=== PATIENT | female | born 1985 ===

== ENCOUNTER → 2019-12-19 14:26 | Outpatient (REF) | payer OTHER, SELFPAY ==
--- NOTE | 2019-12-19 14:00 | ECG_ITS ---
Hook-up date: 2019-12-19 14:46:00 Duration: 24:41:00 Test Indications: VERTIGO Medications: [id number] QRS complexes * Ventricular ectopics which represent % of total QRS comp. 8 Supraventricular ectopics which represent <1 % of total QRS comp. * Paced QRS complexs which represent % of total QRS comp. VENTRICULAR ECTOPY * Isolated * Bigeminal Cycles * Couplets * Runs * Beats in Runs * Beats LONGEST at * BPM at :: -- * Beats FASTEST at * BPM at :: -- SUPRAVENTRICULAR ECTOPY 3 Isolated 0 Couplets 1 Runs 5 Beats in Runs 5 Beats LONGEST at 98 BPM at 04:45:46 2019-12-20 5 Beats FASTEST at 98 BPM at 04:45:46 2019-12-20 HEART RATES 52 MIN at 06:01:39 2019-12-20 77 AVG 155 MAX at 13:50:43 2019-12-20 LONGEST RR 1.2560 secs at 06:42:00 2019-12-20 S-T LEVELS Channel 1 - 128 mm at 14:46:00 2019-12-19 - 128 mm at 14:46:00 2019-12-19 Channel 2 - 128 mm at 14:46:00 2019-12-19 - 128 mm at 14:46:00 2019-12-19 Channel 3 - 128 mm at 03:40:51 -- - 128 mm at 03:40:51 Underlying rhythm is sinus; Average ventricular rate 77/min; range 52-155/min; About 10% of rates >100/min and 4% <60/min; Very rare supraventricular ectopy; No dangerous dysrhythm periods ; Symptoms in patient diary including chest tightness, lightheaded, heart pounding, falling, feel like dying, short of breath, correlating with sinus rhythm. Referred By: Rory Martinez Overread By: MIKEY OTT
== END ==
LOC: HO.CARD 14:26
PROVIDERS: PCP Nurse Practitioner Family; Visit Provider Nurse Practitioner Family
DX: R42 Dizziness and giddiness (principal)
CPT/HCPCS: 93225; 93226

== ENCOUNTER 2019-12-22 04:25 | Emergency (ER) | payer OTHER, SELFPAY ==
--- NOTE | 2019-12-22 04:29 | ECG_ITS ---
Test Reason : CHEST TIGHTNESS Blood Pressure : / mmHG Vent. Rate : 077 BPM Atrial Rate : 077 BPM P-R Int : 176 ms QRS Dur : 090 ms QT Int : 396 ms P-R-T Axes : 046 026 012 degrees QTc Int : 448 ms Normal sinus rhythm with sinus arrhythmia Normal ECG When compared with ECG of 25-NOV-2019 03:54, No significant change was found Referred By: Berkley Harley Electronically Signed By:AMARILIS CARLSON MD
[2019-12-22 04:36] VITALS: BP 140/84; PULSE 74; RESP 16; TEMP 36.7; O2SAT 100; BMI 25.1
[2019-12-22 06:53] VITALS: BP 127/64; PULSE 74; RESP 16; O2SAT 98
--- NOTE | 2019-12-22 06:53 | ED.CHESTPAIN ---
HPI - Chest Pain General Chief Complaint: Chest Pain Stated Complaint: chest discomfort Time Seen by Provider: 12/22/19 06:53 History of Present Illness HPI narrative: Delayed entry secondary to complications with remote log in. This is a pleasant 34-year-old female who presents with persistent body sensations that she has been experiencing for over 4 weeks. She was evaluated here in the emergency department in November for the symptoms and at that time was found to have a negative workup. In addition, patient has undergone a Holter monitor for further evaluation of her cardiac symptoms which include palpitations/ heart racing. Patient describes feeling a sensation of falling when attempting to sleep and then feeling as though she needs to concentrate very hard or she feels like she may pass out. It is at this time that she feels sensation of chest tightness. These episodes have not been associated with fevers, chills, recent travel, unilateral calf swelling or pain, and she has been COVID-19 tested and found to be negative. She endorses that sometimes the symptoms can occur during the day, however there does not seem to be identifiable triggers. She states she is having significant difficulty in gaining access to her primary care provider and consistent follow-up for other tests. At this time she does not feel that this is consistent with anxiety. Related Data Previous Rx's Medication Instructions Recorded hydroxyzine HCl 25 mg PO BEDTIME PRN #3 tab 12/22/19 buspirone 10 mg tablet 10 mg PO BID 14 Days #28 tab 12/28/19 Allergies Allergy/AdvReac Type Severity Reaction Status Date / Time azithromycin [From ZITHROMAX] Allergy Unknown UNKNOWN Verified 12/27/19 12:54 concord grape Allergy Unknown hives Uncoded 12/27/19 12:54 CONCORD GRAPES Allergy Unknown ITCHY Uncoded 12/27/19 12:54 THROAT Review of Systems Review of Systems: Pertinent positives and negatives as stated in HPI 10 point review systems is otherwise negative. [facility] Past Medical History Source: nursing notes reviewed Social History Social History Alcohol intake: current Smoking Status: Never smoker Physical Exam Vital Signs and I&O and Narrative: Vital Signs and I&O: Vital Signs Temp 98.0 F 12/22/19 04:36 Pulse 74 12/22/19 06:53 Resp 16 12/22/19 06:53 BP 127/64 10/09/20 06:53 Pulse Ox 98 12/22/19 06:53 Body Mass Index 25.1 VITAL SIGNS: Reviewed. GENERAL: Well developed, well nourished, in no acute distress. HEAD: Normocephalic/atraumatic, EYES: PERRLA, EOMI intact without pain, no nystagmus/pallor/icterus noted EARS: Ext canals without abnormality, TMs non-bulging and non-erythematous NOSE: Nares patent bilateral OROPHARYNX: no oral lesions noted, posterior pharynx clear and non-erythematous without noted tonsillar enlargement/erythema/exudates NECK: Supple, no adenopathy LUNGS: Normal breath sounds. No adventitious sounds or accessory muscle use. SpO2<98%> CARDIOVASCULAR: Regular rate and rhythm without noted murmurs, no JVD or lower extremity edema. ABDOMEN: Soft, non-tender, non-distended with bowel sounds. No rigidity. No guarding. No palpable masses or hernias noted MUSCULOSKELETAL: No tenderness, deformities, or effusions noted on gross inspection. EXTREMITIES: No cyanosis, clubbing or edema. SKIN: Inspection of the skin reveals no rashes, ulcerations, jaundice, pallor, or petechiae. NEUROLOGIC: Alert and oriented x 4. Strength and sensation to light touch were grossly intact x 4. Course Course Course Narrative: This is a 34-year-old female with history and clinical presentation most consistent with anxiety like reaction and on review of all lab work there is no evidence of infection, thyroid dysfunction, or abnormal EKG findings. Proceeded to have a shared decision making discussion with the patient regarding repeating laboratory tests, access to follow up appointments, and attempting a trial of medication for anxiety. In addition, offered the option of assistance from case management. Patient agrees that repeat lab work will be unlikely to uncover an unidentified problem given current asymptomatic status. She did agree to trial an anti-anxiety medication prior to bedtime and would like the help of case management in gaining follow-up access. Patient was discharged in stable condition. MDM - Chest Pain ECG Data ECG #1: Attestation: I personally reviewed and interpreted this ECG as follows: Prior ECG tracings: available for review (11/25/2019) Interpretation: NSR, HR-77, no evidence of ischemia Discharge Plan Discharge Clinical Impression: Anxiety Patient Disposition: Home, Self-Care Instructions: Anxiety (ED) Additional Instructions: The patient and/or family acknowledge understanding of results (as applicable), diagnosis, treatment plan, need for follow up, and symptoms that should prompt a return to the emergency room. Prescriptions: New hydroxyzine HCl 25 mg tablet 25 mg PO BEDTIME PRN (Reason: anxiety) Qty: 3 RF: 0 No Action buspirone 10 mg tablet 10 mg PO BID 14 Days Qty: 28 RF: 0 Referrals: Rory Martinez FNP-BC [Primary Care Provider] - 2 days ( for possible anxiety symptoms) Interventions: ED Discharge Assessment Last Done: 12/22/19 07:30 Discharge Date/Time: 12/22/19 07:31
== END 2019-12-22 07:31 | disposition home or self-care (01) ==
PROVIDERS: Emergency Provider Student in an Organized Health Care Education/Training Program; PCP Nurse Practitioner Family
DX: F43.0 Acute stress reaction (principal); F41.1 Generalized anxiety disorder
CPT/HCPCS: 93005; 99283

== ENCOUNTER 2020-01-02 14:00 | Outpatient (REF) | payer OTHER, SELFPAY ==
[2020-01-02 17:21] LABS: Baso%MD 0.6 %; Eos%MD 0.7 %; Hematocrit 36.7 % (37-47); Hemoglobin 12.1 g/dl (12.0-16.0); IG%MD 0.1 %; Mean Platelet Volume 10.9 fL (9.4-12.3); Mono%MD 5.6 %; Platelet Count 230 X10*3/uL (160-400); Red Blood Count 4.17 X10*6/uL (4.20-5.50); Red Cell Distribution Width 11.9 % (11.0-16.0)
[2020-01-02 17:36] LABS: Anion Gap 15 (12-20); Blood Urea Nitrogen 11 mg/dL (9-16); Calcium 9.8 mg/dL (8.4-10.2); Carbon Dioxide 28 mmol/L (22-29); Chloride 102 mmol/L (96-108); Estimated Glomerular Filt Rate > 60; Glucose Random 83 mg/dL (60-115); Iron 129 mcg/dL (30-160); Percent Iron Saturation 34 % (15-50); Potassium 4.6 mmol/l (3.3-5.1); Sodium 140 mmol/L (135-145); Total Iron Binding Capacity 378 mcg/dL (228-428); Unsaturated Iron Binding 249 ug/dL
[2020-01-02 17:58] LABS: Ferritin 79 ng/mL (10-122)
[2020-01-02 18:00] LABS: Basophils Abs Manual 0.1 X10*3/uL (0.0-0.3); Basophils Percent Manual 1 % (0-1); Eosinophils Absolute Manual 0.1 X10*3/UL (0.0-0.8); Eosinophils Percent Manual 1 % (0-4); Lymphocytes Absolute Manual 2.3 X10*3/uL (0.6-4.8); Lymphocytes Percent Manual 33 % (20-40); Monocytes Absolute Manual 0.4 X10*3/uL (0.0-1.2); Monocytes Percent Manual 5 % (2-11); Neutrophils Percent Manual 60 % (45-73)
[2020-01-02 18:01] LABS: Band Neutrophils Percent 0 % (3-5); Neutrophils Absolute Manual 4.2 X10*3/uL (2.2-7.9); Platelet Estimate NORMAL (NORMAL); Platelet Morphology Comment NORMAL; RBC Morphology NORMAL
[2020-01-02 18:02] LABS: Vitamin B12 330 pg/mL (200-900)
[2020-01-06 05:17] LABS: Transferrin 303 mg/dL (188-341)
== END 2020-01-02 14:01 | disposition home or self-care (01) ==
LOC: HO.HMGCLDS 14:00
PROVIDERS: PCP Nurse Practitioner Family; Visit Provider Nurse Practitioner Family
DX: D64.9 Anemia, unspecified (principal); R42 Dizziness and giddiness; F41.9 Anxiety disorder, unspecified
CPT/HCPCS: 36415; 80048; 82607; 82728; 83540; 84466; 85007; 85027

== ENCOUNTER 2020-01-05 14:25 | Outpatient (REF) | payer OTHER, SELFPAY ==
[2020-01-05 17:23] LABS: COVID-19 Test Negative (Negative)
== END 2020-01-05 14:26 | disposition home or self-care (01) ==
LOC: HO.LAB 14:25
PROVIDERS: PCP Nurse Practitioner Family; Visit Provider Internal Medicine
DX: Z20.828 Contact with and (suspected) exposure to other viral communicable diseases (principal)
CPT/HCPCS: 87635

== ENCOUNTER 2020-01-09 14:32 | Outpatient (REF) | payer OTHER, SELFPAY | END 2020-01-09 14:33 | disposition home or self-care (01) | LOC: HO.LAB 14:32 | PROVIDERS: PCP Nurse Practitioner Family; Visit Provider Internal Medicine | DX: Z20.828 Contact with and (suspected) exposure to other viral communicable diseases (principal) | CPT/HCPCS: 87635 ==

== ENCOUNTER 2020-01-12 13:00 | Outpatient (RCR) | payer OTHER, SELFPAY ==
--- NOTE | 2020-01-12 14:04 | MHC.PT.DC ---
[facility] [place] Office [place] Office [place] Office [address] Donna Palmer [address] [phone] F: [phone] F: [phone] F: [phone] F: [phone] Physical Therapy Discharge Report Diagnosis: Dorsalgia Date of Surgery: NA Date of Evaluation: 10/18/19 Date of Discharge: 01/12/20 Treatments to Date: 21 Cancellations to Date: 1 No Shows to Date: 0 Discharge Status: Achieved Goals Improved Function Independent with HEP Discharge Summary: Patient is ready for DC. Came for 21 visits and we addressed multiple different symptoms and in general she is feeling better. She demos good I in HEP, demos improvements in strength and ROM as well as function. She has no pain during tx sessions. Would benefit from continued HEP for strengthening to maintain results. Electronically signed by: Nancy Ruiz PT Please sign and return to therapist. Thank you for your referral.
== END 2021-01-10 11:22 | disposition home or self-care (01) ==
LOC: HO.PTCHIC 13:00
PROVIDERS: PCP Nurse Practitioner Family; Visit Provider Nurse Practitioner Family
DX: M54.9 Dorsalgia, unspecified (principal)
CPT/HCPCS: 97110; 97140; 97530

== ENCOUNTER → 2020-01-24 13:05 | Outpatient (BNVA) | payer OTHER, SELFPAY | PROVIDERS: PCP Nurse Practitioner Family; Visit Provider Internal Medicine Cardiovascular Disease | DX: R00.2 Palpitations (principal); R42 Dizziness and giddiness; D64.9 Anemia, unspecified; F41.9 Anxiety disorder, unspecified | CPT/HCPCS: 93005 ==

== ENCOUNTER → 2020-02-27 09:22 | Outpatient (REF) | payer OTHER, SELFPAY ==
--- NOTE | 2020-02-27 09:27 | CA_ITS ---
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 The visually estimated ejection fraction is between 55-60%. - No obvious valvular pathology seen on this study. Findings Procedure Information Contrast agent, definity, is being given per protocol without apparent complications. Left Ventricle Normal left ventricular cavity size. There is normal left ventricular wall thickness. The left ventricular systolic function is normal. The visually estimated ejection fraction is between 55-60%. There is no evidence of regional wall motion abnormalities. Diastolic function is normal for age. Right Ventricle Normal right ventricular cavity size and systolic function. Atria Both atria are normal in size. Aortic Valve There is a normal trileaflet aortic valve. There is no aortic valve stenosis. There is no aortic valve regurgitation. Mitral Valve The mitral valve appears normal. There is trace mitral valve regurgitation. There is no mitral valve stenosis. Pulmonic Valve The pulmonic valve was not well visualized. Tricuspid Valve Normal tricuspid valve structure. There is trace tricuspid valve regurgitation. The pulmonary artery systolic pressure is normal. Great Vessels The aortic annulus, sinuses of valsalva, and asc aorta are normal in size. Venous The inferior vena cava is normal in size and collapses greater than 50% with inspiration. Pericardium/Pleural There is no evidence of pericardial effusion. Prior Study Comparison No significant change compared to prior study dated: 02/05/2018. Recommendations, Care & Conclusions No obvious valvular pathology seen on this study. Measurements M-Mode Liner Measurements Normals - Women/Men LVIDd: 5.00 3.9-5.3/4.2-5.9 cm LVIDd Index: 2.56 1.9-3.2 cm/m2 LVIDs: 3.14 2.0-3.8 cm M-Mode Volumes LV EDV: 118.00 LV ESV: 39.10 2D Linear Measurements IVSd: 0.63 0.6-0.9/0.6-1.0 cm LVIDd: 4.97 3.9-5.3/4.2-5.9 cm LVIDd Index: 2.55 2.4-3.2/2.2-3.1 cm/m2 LVIDs: 3.61 2.0-3.6 cm LVPWd: 0.92 0.7-1.1 cm Ao Root: 2.10 2.1-3.5 cm LA Diam: 2.80 2.7-3.8/3.0-4.0 cm LAIDs Index: 1.44 1.5-2.3 cm/m2 LV Mass: 160.32 67-162/88-224 g LV Mass Index: 82.21 43-95/49-115 g/m2 LVOT Diam: 2.00 3.0+(-)1.3 cm M-Mode Systolic Function FS: 37.20 27-47/25-43% LVEF: 66.90 >55% Mitral Valve MV Pk E: 1.04 MV PK A: 0.42 MV Decel Time: 206.00 E/A: 2.50 E'Lateral: 17.50 E'Medial: 12.60 E/E' Med: 8.30 E/E' Lat: 5.90 PHT: 60.00 MVA PHT: 3.67 Decel Benzie: 5.06 Aortic Valve AoV Pk Fuad: 1.29 AoV Pk Grad: 7.00 LVOT LVOT Pk Fuad: 0.90 LVOT Mn Fuad: 0.62 LVOT VTI: 0.21 LVOT Pk Grad: 3.00 LVOT Mn Grad: 2.00 LVOT Diam: 2.00 LVOT Area: 3.14 Diastolic Function MV Pk E: 1.04 MV Pk A: 0.42 E/A: 2.50 E'Medial: 12.60 E/E' Med: 8.30 E' Laterial: 17.50 E/E' Lat: 5.90 Tricuspid Valve TR Pk Fuad: 1.97 TR Pk Grad: 16.00 RA Press: 3.00 RVSP: 19.00 Great Vessels Aorta Ao Root-2D: 2.10 2.0-3.7 cm Ao Asc: 2.50 2.1-3.4 cm Updated in Other Vendor System with Status of Final José Miguel Nicole MD electronically signed on 02/27/2020 4:57:20 PM with status of Final
== END ==
LOC: HO.CARD 09:22
PROVIDERS: Visit Provider Internal Medicine Cardiovascular Disease
DX: R00.2 Palpitations (principal)
CPT/HCPCS: 93306; Q9957

== ENCOUNTER → 2020-05-01 13:56 | Outpatient (BNVA) | payer OTHER, SELFPAY | PROVIDERS: PCP Nurse Practitioner Family; Visit Provider Internal Medicine Cardiovascular Disease ==

== ENCOUNTER 2020-09-30 09:50 | Outpatient (REF) | payer OTHER, SELFPAY ==
[2020-09-30 16:08] LABS: CT PCR NOT DETECTED (Not Detect.); NG PCR NOT DETECTED (Not Detect.)
== END 2020-09-30 09:51 | disposition home or self-care (01) ==
LOC: HO.LAB 09:50
PROVIDERS: Visit Provider Advanced Practice Midwife
DX: Z01.419 Encounter for gynecological examination (general) (routine) without abnormal findings (principal); R82.79 Other abnormal findings on microbiological examination of urine; Z23 Encounter for immunization; Z79.899 Other long term (current) drug therapy
CPT/HCPCS: 81003; 87491; 87591; 90471

== ENCOUNTER → 2020-10-17 12:32 | Outpatient (BNVA) | payer OTHER, SELFPAY | PROVIDERS: PCP Nurse Practitioner Family; Referring Provider Nurse Practitioner Family; Visit Provider Internal Medicine Cardiovascular Disease | DX: R42 Dizziness and giddiness (principal) | CPT/HCPCS: 93005 ==

== ENCOUNTER → 2020-11-22 13:06 | Outpatient (BNVA) | payer OTHER, SELFPAY | PROVIDERS: PCP Nurse Practitioner Family; Visit Provider Advanced Practice Midwife | DX: Z23 Encounter for immunization (principal) | CPT/HCPCS: 90471 ==

== ENCOUNTER 2021-01-16 08:00 | Outpatient (RCR) | payer OTHER, SELFPAY ==
--- NOTE | 2020-10-15 08:52 | MHC.PT.EP ---
[place] Office [place] Office [place] Office [address] Donna Palmer [address] [phone] F: [phone] F: [phone] F: [phone] F: [phone] Physical Therapy Plan of Care Date of Evaluation: Date of Surgery: n/a Diagnosis: back and shoulder pain Assessment: Patient is a 34 year old R handed female who presents with s/s consistent with back and shoulder pain. The onset is not related to trauma. She does have a history of scoliosis and notes the pain is mostly related to sitting for longer periods of time. She works with daily job demands including sitting 6-8 hours/day. Patient past medical history also includes asthma. Current impairments include pain, posture, flexibility, strength, activity tolerance and functional mobility. Functional limitations include decreased ability to sit, work, and travel via car, train or plane. Patient is motivated with good rehab potential. Skilled PT will address impairments and functional limitations in order to achieve goals. Frequency and Duration: The patient will be seen 2x/week for 5 weeks Short Term Goals: I with HEP - 2 weeks Able to sit > 1 hour before increased pain - 3 weeks Work/leisure modifications to posture - 3 weeks Custodial Goals: Able to fly with 3/10 max pain to/from [place] - 5 weeks Able to sit > 2 hours with 1/10 pain - 5 weeks Treatment Plan: Modalities to reduce pain, spasms and effusion. Manual therapy to restore motion and function. Therapeutic exercise to improve strength and flexibility. Neuromuscular re-education for posture and balance. Therapeutic activities to return to functional activities of daily living. Electronically signed by: Michael Salazar, PT Please sign and return to therapist. Thank you for your referral.
--- NOTE | 2021-02-19 13:44 | MHC.PT.DC ---
[facility] [place] Office [place] Office [place] Office [address] Donna Palmer [address] [phone] F: [phone] F: [phone] F: [phone] F: [phone] Physical Therapy Discharge Report Diagnosis: back and shoulder pain Date of Surgery: n/a Date of Evaluation: 10/15/20 Date of Discharge: 01/16/21 Treatments to Date: 16 Cancellations to Date: 0 No Shows to Date: 0 Discharge Status: Independent with HEP Discharge Summary: 01/16/21: HEP was reviewed. Pt progress documented in objective measures. We discussed plan at length and in agreement to transition to HEP at this time as patient is confident in ability to manage s/s independently. 01/14/21: pt is somewhat uneasy d/c'ing to HEP but ready. encouraged her on importance of trying to manage s/s independently. we reviewed HEP and will issue updated HEP NV. 01/10: Patient tolerated incline on treadmill well. Demos good understanding of postural corrections and TAC. Educated on remaining 2 visits. Pt with good carryover with TAC training. tends to tolerated decline amb better (extension encouraged). educated on postures and positions, symptom management. Electronically signed by: Michael Salazar, PT Please sign and return to therapist. Thank you for your referral.
== END 2021-02-19 13:45 | disposition home or self-care (01) ==
LOC: HO.PTCHIC 08:00
PROVIDERS: PCP Nurse Practitioner Family; Visit Provider Nurse Practitioner Family
DX: R52 Pain, unspecified (principal)
CPT/HCPCS: 97110; 97112; 97140; 97161; 97530

== ENCOUNTER 2021-03-17 10:36 | Outpatient (REF) | payer OTHER, SELFPAY ==
[2021-03-17 13:59] LABS: Appearance Urine CLEAR; Color Urine YELLOW; Glucose Urine UA NEG (NEG); Leukocyte Esterase Urine NEG (NEG); Nitrite Urine NEG (NEG); UACC Culture Trigger NO; Urine Blood 1+ (NEG); Urine Ketones NEG (NEG); Urine Protein NEG (NEG-TRACE)
[2021-03-17 14:16] LABS: Squamous Epithelial Cell Urine TRACE /LPF; WBC Urine 0 /HPF (0-4)
[2021-03-17 14:26] LABS: Alanine Aminotransferase 16 U/L (0-31); Albumin Level 4.3 g/dL (3.5-5.0); Alkaline Phosphatase 56 U/L (39-117); Anion Gap 10 (12-20); Aspartate Amino Transferase 12 U/L (5-31); Bilirubin Total 1.4 mg/dL (0.0-1.0); Blood Urea Nitrogen 12 mg/dL (9-16); Calcium 9.6 mg/dL (8.4-10.2); Carbon Dioxide 30 mmol/L (22-29); Chloride 107 mmol/L (96-108); Cholesterol 177 mg/dL; Estimated Glomerular Filt Rate > 60; Glucose Fasting 77 mg/dL (60-99); HDL Cholesterol 65 mg/dL; LDL Cholesterol Calculated 102 mg/dl; Sodium 142 mmol/L (135-145); Total Protein 7.3 g/dL (6.5-8.0); Triglycerides 51 mg/dL
[2021-03-17 14:49] LABS: TSH reflex Free T4 1.07 uIU/mL (0.32-4.0)
== END 2021-03-17 10:37 | disposition home or self-care (01) ==
LOC: HO.HMGCLDS 10:36
PROVIDERS: PCP Nurse Practitioner Family; Visit Provider Nurse Practitioner Family
DX: Z00.00 Encounter for general adult medical examination without abnormal findings (principal)
CPT/HCPCS: 36415; 80053; 80061; 81001; 84443

== ENCOUNTER 2021-10-27 11:00 | Outpatient (RCR) | payer BC, OTHER, SELFPAY ==
--- NOTE | 2021-08-29 14:59 | MHC.PT.EP ---
[facility] [place] Office [place] Office [place] Office [address] [phone] F: [phone] F: [phone] F: [phone] F: [phone] Physical Therapy Plan of Care Date of Evaluation: Date of Surgery: n/a Diagnosis: Lumbar Stenosis, Nerve Root Compression Assessment: Patient is a 35 year old R handed female who presents with s/s consistent with lumbar stenosis and nerve root compression. 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 Patient past medical history includes heart murmur, depression, anemia and asthma. Current impairments include pain, posture, ROM, strength, activity tolerance and functional mobility. Functional limitations include decreased ability to walk, bend, drive, sit, lift and sleep. Patient is motivated with good rehab potential. Skilled PT will address impairments and functional limitations in order to achieve goals. Frequency and Duration: The patient will be seen 2x/week for 4 weeks Short Term Goals: I with HEP - 2 weeks s/s centralized - 2 weeks proper body mechanics for transfers, lifting, sit <> stand - 2 weeks Correction Goals: hip strength 4/5 grossly - 4 weeks HS flex WNL - 4 weeks Oswestry 10% or better - 4 weeks Treatment Plan: Modalities to reduce pain, spasms and effusion. Manual therapy to restore motion and function. Therapeutic exercise to improve strength and flexibility. Neuromuscular re-education for posture and balance. Therapeutic activities to return to functional activities of daily living. Electronically signed by: Michael Salazar, PT Please sign and return to therapist. Thank you for your referral.
--- NOTE | 2021-12-04 11:23 | MHC.PT.DC ---
[facility] [place] Office [place] Office [place] Office [address] Donna Palmer [address] [phone] F: [phone] F: [phone] F: [phone] F: [phone] Physical Therapy Discharge Report Diagnosis: Lumbar Stenosis, Nerve Root Compression Date of Surgery: n/a Date of Evaluation: 08/28/21 Date of Discharge: 11/22/21 Treatments to Date: 7 Cancellations to Date: No Shows to Date: Discharge Status: Improved Function Independent with HEP Discharge Summary: 10/27/21: pt progressed well during PT and has proven I with HEP. She is appropriate to d/c to HEP at this time. s/s have contralized and she demonstrates proper body mechanics with all transfers. hip strength is 4/5 grossly. 09/22/21: reviewed HEP today. no adverse reactions. pt I with HEP at this time. she will be away for 3 weeks and is committed to continuewith HEP and report back in 4 weeks. 09/19/21: pt with good carryover. challenged but no new s/s. 1 more visit before leaving for 3 weeks. 09/17/21: pt progressed with seated TAC ex today. she still is having difficulty driving possibly due to seat model. 09/11/21: pt progressed again with core stab. excellent squat mechanics and very receptive to edu. 09/08/21: progressing with core stab. excellent carryover. no adverse reactions. we will continue to progress as tolerated. 09/03/21: pt progressing well with skilled PT for core stab. good carryover and reduced s/s overall. to taper ext ex and progress core stab. 09/01/21: minimal s/s today. compliance with HEP. gait shows L LE with hip ER and lateral tibial torsion, b/l trendelenberg. we will address this as well as body mechanics NV. Patient is a 35 year old R handed female who presents with s/s consistent with lumbar stenosis and nerve root compression. 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 Patient past medical history includes heart murmur, depression, anemia and asthma. Current impairments include pain, posture, ROM, strength, activity tolerance and functional mobility. Functional limitations include decreased ability to walk, bend, drive, sit, lift and sleep. Patient is motivated with good rehab potential. Skilled PT will address impairments and functional limitations in order to achieve goals. Electronically signed by: Michael Salazar, PT Please sign and return to therapist. Thank you for your referral.
== END 2021-12-04 11:23 | disposition home or self-care (01) ==
LOC: HO.PTCHIC 11:00
PROVIDERS: PCP Nurse Practitioner Family; Visit Provider Nurse Practitioner Family
DX: G54.9 Nerve root and plexus disorder, unspecified (principal); M48.061 Spinal stenosis, lumbar region without neurogenic claudication
CPT/HCPCS: 97110; 97112; 97162

== ENCOUNTER → 2021-11-27 14:33 | Outpatient (BNVA) | payer BC, SELFPAY | PROVIDERS: PCP Nurse Practitioner Family; Referring Provider Nurse Practitioner Family; Visit Provider Nurse Practitioner Family | DX: R42 Dizziness and giddiness (principal) | CPT/HCPCS: 93005 ==

== ENCOUNTER 2022-12-07 12:47 | Outpatient (AMB) | payer BC, SELFPAY ==
--- NOTE | 2022-12-07 12:50 | A.OFFVIS_ITS ---
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 Accompanied by: Self / Same As Patient Allergies azithromycin [From ZITHROMAX] Allergy (Unknown, Verified 12/07/22 12:52) UNKNOWN concord grape Allergy (Unknown, Uncoded 12/07/22 12:52) hives CONCORD GRAPES Allergy (Unknown, Uncoded 12/07/22 12:52) ITCHY THROAT Medication List - Last Reconciled 12/07/22 by Rafiq Rea MD albuterol sulfate 90 mcg/actuation (ProAir HFA) 2 puffs inhalation Q4-6H PRN ascorbate calcium (vitamin C) 500 mg PO DAILY biotin-calcium carbonate 800-195 mcg-mg (Biotin-Calcium) tabs PO cholecalciferol (vitamin D3) 25 mcg PO DAILY ferrous sulfate ([place]ton-Time) 325 mg PO DAILY ibuprofen 800 mg PO Q8H PRN levonorgestrel (Mirena) intrauterine HPI HPI Comments History of Present Illness Details 34-year-old female here for follow-up. She has been doing well with hydration and has not had any more vasovagal events. Denies any chest discomfort shortness of breath. 12/07/22: She returns for follow-up. Sh ed has been doing well and did not have any significant syncopal episodes or presyncope. She has been hydrating herself with electrolytes and using compression stockings off and on. She had a back injury and is recovering from that. She is beginning to exercise again with walks and stairs. [facility] Medical History Anemia Asthma Nerve root compression Surgical History No pertinent past surgical history Family History Father CVD (cardiovascular disease) Arrhythmia Myocardial infarction Paternal Grandfather Cancer Maternal Grandmother Stroke Maternal Uncle Substance use disorder Mother Substance use disorder Mental health disorder Maternal Grandmother Mental health disorder Sister Mental health disorder Social History Housing: Apartment Alcohol intake: former Year quit: 2021 Patient Tobacco Use Status: Never used Tobacco e-Cigarette/Vaping Use: Never Used Second Hand Smoke Exposure: No service: No Current occupational status: employed Current occupation: [employer] Current occupational exposures/hazards: No Gender identity: Female Cognitive needs: No Hearing needs: No Vision needs: No Female Reproductive History Menstrual Age of Menarche: 14 Review of Systems Const Denies weakness ENT Denies dizziness Card Denies chest pain, Denies chest pain with activity, Denies syncope, Denies rapid heart rate, Denies pedal edema, Denies edema, Denies leg edema, Denies lightheadedness, Denies palpitations, Denies dyspnea, Denies dyspnea on exertion and Denies orthopnea Resp Denies cough, Denies dyspnea and Denies dyspnea on exertion GI Denies hematochezia and Denies change in stool character Musc Denies abnormal gait, Denies muscle cramps, Denies muscle weakness, Denies numbness, Denies radiating pain into limb and Denies tingling Neuro Denies abnormal gait, Denies dizziness, Denies syncope, Denies numbness, Denies tingling and Denies weakness Endo Denies palpitations Physical Exam Vital Signs: Last Vital Signs Pulse 72 12/07/22 12:51 BP 124/82 12/07/22 12:51 BMI result Body Mass Index 36.8 GENERAL APPEARANCE: in no acute distress, well developed, well nourished. SKIN: no suspicious lesions, warm and dry. HEART: no murmurs, regular rate and rhythm, S1, S2 normal. LUNGS: clear to auscultation bilaterally. ABDOMEN: normal, bowel sounds present, soft, nontender, nondistended. EXTREMITIES: no clubbing, cyanosis, or edema. PERIPHERAL PULSES: equal. NEUROLOGIC: nonfocal, alert and oriented. PSYCH: Anxious appearing. Office Procedures EKG Details: Sinus rhythm 72 beats per minute, normal ECG, QTC 420 milliseconds. [id number], Complete Assessment & Plan Assessment & Plan (1) Dizziness: Code(s): R42 - Dizziness and giddiness (2) Screening for hyperlipidemia: Code(s): Z13.220 - Encounter for screening for lipoid disorders Plan Pleasant 36-year-old female who is here for follow-up. She has been doing well. She previously was seen for orthostasis and infected tilt-table test was performed in January 2020 where her blood pressure dropped to 78 / 49 and she was thought to be dehydrated. With fluid intake and salt intake she has done well. I have advised her to continue same for now. For orthostasis and intolerance of upright posture generally exercise bike and rowing machine work well. We will check a fasting lipid panel. Thank you for allowing me to participate in the care of your patient. Please feel free to contact me if you have any questions. Orders: Orders Lipid Panel Today Z13.220 - Encounter for screening for lipoid disorders Coding Level of Care Code Est Pt Level 3 (16339) Diagnoses Dizziness R42 Screening for hyperlipidemia Z13.220 CPT Codes EKG - CPT: 27267-[id number], Complete ([id number])
[2022-12-07 12:51] VITALS: BP 124/82; PULSE 72; BMI 36.8
== END 2022-12-07 13:11 | disposition home or self-care (01) ==
PROVIDERS: PCP Nurse Practitioner Family; Visit Provider Internal Medicine Cardiovascular Disease
DX: R42 Dizziness and giddiness (principal); Z13.220 Encounter for screening for lipoid disorders
CPT/HCPCS: 93010; 99213

== ENCOUNTER → 2022-12-07 12:47 | Outpatient (BNVA) | payer BC, SELFPAY | PROVIDERS: PCP Nurse Practitioner Family; Visit Provider Internal Medicine Cardiovascular Disease | DX: R42 Dizziness and giddiness (principal) | CPT/HCPCS: 93005 ==

== ENCOUNTER 2022-12-11 09:36 | Outpatient (REF) | payer BC, SELFPAY ==
[2022-12-11 11:09] LABS: MANUAL DIFF FLAG NO
[2022-12-11 11:20] LABS: Basophils Absolute Auto 0.1 X10*3/uL (0.0-0.2); Basophils Percent Auto 0.5 % (0-2); Eosinophils Absolute Auto 0.1 X10*3/uL (0.0-0.4); Eosinophils Percent Auto 1.2 % (0-4); Hematocrit 36.1 % (37.0-47.0); Hemoglobin 11.9 g/dl (12.0-16.0); Imm Gran Abs Auto 0.02 X10*3/uL (0.00-0.03); Imm Gran Pct Auto 0.2 % (0.0-0.4); Lymphocytes Absolute Auto 2.2 X10*3/uL (1.2-4.9); Lymphocytes Percent Auto 23.4 % (20-40); Mean Platelet Volume 10.2 fL (9.4-12.3); Monocytes Absolute Auto 0.7 X10*3/uL (0.1-1.2); Monocytes Percent Auto 7.7 % (2-11); Neutrophils Absolute Auto 6.2 x10*3/uL (2.0-8.3); Platelet Count 252 X10*3/uL (160-400); Red Cell Distribution Width 12.2 % (11.0-16.0); White Blood Count 9.3 X10*3/uL (4.8-10.8)
[2022-12-11 11:58] LABS: Alanine Aminotransferase 10 U/L (0-31); Albumin Level 4.2 g/dL (3.5-5.0); Alkaline Phosphatase 58 U/L (39-117); Anion Gap 15 (12-20); Aspartate Amino Transferase 12 U/L (5-31); Bilirubin Total 1.2 mg/dL (0.0-1.0); Blood Urea Nitrogen 11 mg/dL (9-16); Calcium 9.7 mg/dL (8.4-10.2); Carbon Dioxide 25 mmol/L (22-29); Chloride 106 mmol/L (96-108); Cholesterol 174 mg/dL (<200); Estimated Glomerular Filt Rate > 60; Glucose Fasting 86 mg/dL (60-99); HDL Cholesterol 66 mg/dL (>40); LDL Cholesterol Calculated 97 mg/dL (<100); Potassium 3.8 mmol/L (3.3-5.1); Sodium 142 mmol/L (135-145); Total Protein 7.3 g/dL (6.5-8.0); Triglycerides 56 mg/dL (<150)
[2022-12-11 14:01] LABS: Appearance Urine Clear; Color Urine Yellow; Glucose Urine UA Negative (Negative); Leukocyte Esterase Urine Negative (Negative); Nitrite Urine Negative (Negative); UMIC TRIGGER UACC YES; Urine Blood Moderate (2+) (Negative); Urine Ketones Negative (Negative); Urine Protein Negative (Neg-Trace)
[2022-12-11 14:08] LABS: Bacteria Urine None Seen (None Seen); Hyaline Casts Urine 0-2 /LPF (0-2); RBC Urine >20 /HPF (0-2); WBC Urine 0-5 /HPF (0-5)
== END 2022-12-11 09:37 | disposition home or self-care (01) ==
LOC: HO.HMGCLDS 09:36
PROVIDERS: PCP Nurse Practitioner Family; Visit Provider Nurse Practitioner Family
DX: Z00.00 Encounter for general adult medical examination without abnormal findings (principal)
CPT/HCPCS: 36415; 80053; 80061; 81001; 81003; 84443; 85025

== ENCOUNTER 2022-12-15 13:03 | Outpatient (AMB) | payer BC, SELFPAY ==
[2022-12-15 13:08] VITALS: BP 140/82; BMI 37.1
--- NOTE | 2022-12-15 13:08 | A.OFFVIS_ITS ---
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 Intake Note: Full STD testing Director Of Student Affairs Required: No Information Interpreted: non-clinical & clinical Assistant Superintendent: Assistant Superintendent Present (Nando) Allergies azithromycin [From ZITHROMAX] Allergy (Unknown, Verified 12/15/22 13:11) UNKNOWN concord grape Allergy (Unknown, Uncoded 12/15/22 13:11) hives CONCORD GRAPES Allergy (Unknown, Uncoded 12/15/22 13:11) ITCHY THROAT Medication List - Last Reconciled 12/15/22 by Ursula Thompson CNM albuterol sulfate 90 mcg/actuation (ProAir HFA) 2 puffs inhalation Q4-6H PRN ascorbate calcium (vitamin C) 500 mg PO DAILY biotin-calcium carbonate 800-195 mcg-mg (Biotin-Calcium) tabs PO cholecalciferol (vitamin D3) 25 mcg PO DAILY ferrous sulfate (Clayton-Time) 325 mg PO DAILY ibuprofen 800 mg PO Q8H PRN levonorgestrel (Mirena) intrauterine Is last menstrual period known: No (mirena) Post menopausal: No 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 She has a Mirena since May of 2017. She had a placed for control but she does like the side effect of no periods it took about 6 months of discomfort and cramping and adjusting for her body to get used to it but since then it has been okay. She would like STI testing just to be sure could is a couple of times a condom did break. She was having some hematuria which was investigated with biopsies but so far everything was okay. 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 [facility] Medical History Nerve root compression Asthma Anemia Surgical History No pertinent past surgical history Family History Father CVD (cardiovascular disease) Arrhythmia Myocardial infarction Paternal Grandfather Cancer Maternal Grandmother Stroke Maternal Uncle Substance use disorder Mother Substance use disorder Mental health disorder Maternal Grandmother Mental health disorder Sister Mental health disorder Social History Housing: Apartment Alcohol intake: former Year quit: 2021 Patient Tobacco Use Status: Never used Tobacco e-Cigarette/Vaping Use: Never Used Second Hand Smoke Exposure: No service: No Current occupational status: employed Current occupation: [employer] Current occupational exposures/hazards: No Gender identity: Female Cognitive needs: No Hearing needs: No Vision needs: No Female Reproductive History Menstrual Age of Menarche: 14 Duration of menses: 3-5 days control method: progestin IUCD Total pregnancies: 0 Date of last pap smear: 06/13/18 (negative) History of abnormal pap smear: No Physical Exam Vital Signs: Last Vital Signs BP 140/82 H 12/15/22 13:08 BMI result Body Mass Index 37.1 Const General: healthy appearing, comfortable, no acute distress, well developed and alert Nutritional Appearance: average body habitus Orientation/consciousness: patient oriented x3 Limitations: no limitations HEENT Head: Yes normocephalic Neck Neck: Yes normal visual inspection Chest Chest palpation & inspection: normal inspection of the chest Breast/axilla inspection: normal inspection of the breasts and normal inspection of the axillae Breast/axilla palpation: normal palpation of the breasts and normal palpation of the axillae Resp Effort & Inspection: normal respiratory effort GI Inspection: Yes normal to inspection, No Abdominal wall edema and No distended Palpation (GI): Soft to palpation and nontender Other: External vulva pink healthy within normal limits. Vagina pink and moist nulliparous cervix with scant white and clear mucus. Consistent with levonorgestrel use. Cervix probed with Cytobrush Mirena string not visible or palpable. Uterus midposition mobile nontender not enlarged adnexa nontender not enlarged good tone with Kegel. General: Yes bladder normal to palpation External Female Exam: normal external appearance and normal appearance of the urethra Speculum Exam - Vagina: normal appearance of the vagina, normal palpation and normal vaginal discharge Speculum Exam - Cervix: normal appearance of the cervix, normal palpation and nontender Bimanual exam- vagina & uterus: normal bimanual exam, normal palpation, uterine size normal, bladder normal to palpation, consistency normal, normal palpation, uterine mobility normal, uterine shape normal, No Cervical tenderness present, non-tender and no cervical motion tenderness Bimanual Exam- Adnexa, other: normal adnexae, no masses, normal and No adnexal tenderness Neuro General: patient oriented x3 Assessment & Plan Assessment & Plan (1) Cervical cancer screening: Code(s): Z12.4 - Encounter for screening for malignant neoplasm of cervix (2) Well woman exam with routine gynecological exam: Code(s): Z01.419 - Encounter for gynecological examination (general) (routine) without abnormal findings (3) Presence of 52 mg levonorgestrel-releasing intrauterine device (IUD): Comment: Inserted May 2017 due for replacement around May 2022. Code(s): Z97.5 - Presence of (intrauterine) contraceptive device (4) Screen for sexually transmitted diseases: Code(s): Z11.3 - Encounter for screening for infections with a predominantly sexual mode of transmission Plan -----Discussed in this visit the following: healthy balanced diet, regular and consistent exercise, getting recommended health screens, doing the best she can for her particular health concerns, kegel exercises, pap smear screening and followup recommendations, mammography screening and SBE, normal changes in cycles in her life stage--- .Reviewed how the Mirena works and its affect on menstrual cycles and menses and the other common changes that women sometimes notice on mood weight another subtle cyclic changes. Reviewed that 1 of the reasons we insert the Mirena at the beginning of the menses is because of the typical physiologic changes that happen with menses that allow for the cervix to be slightly softened and open a very tiny bit which allow for more easy insertion of the Mirena. 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 Discussed problems to watch for including any severe pain, fever, feeling of expulsion. Also discussed what to do if those occur.(call here or seek urgent care) Reviewed why we leave the strings about 3-4 centimetres long, so that they will curl around the cervix otherwise the sharper tip of the strings could be palpable and be uncomfortable. Additionally when they are cut too short it is not possible to remove the IUD in the future easily. Also discussed the initial recommendations to use the Mirena IUD for contraception for up to 5 years. Some recent studies are indicating that it can be used for longer and there are current recommendations saying it can be left for longer period of time when used for contraception, up to 8 years and it can be used for 5 years when it is being used to help control abnormal bleeding. However, many women, whose periods went away for the 1st few years of having the Mirena, have reported that around 4-1/2-5 years into its use, they have noticed return of full menses, and return of ovulatory signs and symptoms midcycle. This varies from women to woman. In addition women who have had it to help control bleeding, have had amenorrhea for very many years and sometimes have opted to leave it in longer if they are still not bleeding, when they are not concerned about contraception. I recommend the she pay attention to how the effects are acting on her own body, and cycles, and always take care to be aware of this. And if she is using it for contraception, and the consequences of conceiving would be great for her, she would be lopez to pay attention to this, and not depend on it, if she has a return to fertility. And if she desires replacement, she should return for replacement at the appropriate time. She does remember the symptoms of ovulation that she used to have before insertion in May of 2017. So I recommend that she pay close attention and if she felt that she was returning to regular cycles or any symptoms of ovulation she should absolutely use condoms 100% which she is doing anyway and plan for removal and insertion. If she had return to normal periods then timing of the removal and insertion should be planned for with her period, but if she is not having cycles then it would be good for her to have of quick over the phone visit had a time with me and I will plan to order misoprostol for her to help soften the cervix as her insertion procedure was so painful in the past. Testing was ordered for HIV hep B hep C and syphilis and she can get those labs done whenever she wishes she is on the portal and can get the results herself we will call her for any positive and will send her a letter about her Paps as well. Orders: Orders CT NG by PCR Today Z20.2 - Contact with and (suspected) exposure to infections with a predominantly sexual mode of transmission Pap Smear Today Z12.4 - Encounter for screening for malignant neoplasm of cervix Hepatitis B Surface Antigen Today Z01.419 - Encounter for gynecological examination (general) (routine) without abnormal findings, Z11.3 - Encounter for screening for infections with a predominantly sexual mode of transmission, Z12.4 - Encounter for screening for malignant neoplasm of cervix, Z97.5 - Presence of (intrauterine) contraceptive device Hepatitis C Antibody Today Z01.419 - Encounter for gynecological examination (general) (routine) without abnormal findings, Z11.3 - Encounter for screening for infections with a predominantly sexual mode of transmission, Z12.4 - Encounter for screening for malignant neoplasm of cervix, Z97.5 - Presence of (intrauterine) contraceptive device HIV Ab/Ag Today Z01.419 - Encounter for gynecological examination (general) (routine) without abnormal findings, Z11.3 - Encounter for screening for infections with a predominantly sexual mode of transmission, Z12.4 - Encounter for screening for malignant neoplasm of cervix, Z97.5 - Presence of (intrauterine) contraceptive device Bacterial Vaginosis Panel Today Z20.2 - Contact with and (suspected) exposure to infections with a predominantly sexual mode of transmission Syphilis Screen Today Z01.419 - Encounter for gynecological examination (general) (routine) without abnormal findings, Z11.3 - Encounter for screening for infections with a predominantly sexual mode of transmission, Z12.4 - Encounter for screening for malignant neoplasm of cervix, Z97.5 - Presence of (intrauterine) contraceptive device Coding Level of Care Code Est Pt Prev Care 18-39y(74607) Diagnoses Cervical cancer screening Z12.4 Well woman exam with routine gynecological exam Z01.419 Presence of 52 mg levonorgestrel-releasing intrauterine device (IUD) Z97.5 Screen for sexually transmitted diseases Z11.3
== END 2022-12-15 14:02 | disposition home or self-care (01) ==
PROVIDERS: PCP Nurse Practitioner Family; Visit Provider Advanced Practice Midwife
DX: Z12.4 Encounter for screening for malignant neoplasm of cervix (principal); Z01.419 Encounter for gynecological examination (general) (routine) without abnormal findings; Z97.5 Presence of (intrauterine) contraceptive device; Z11.3 Encounter for screening for infections with a predominantly sexual mode of transmission
CPT/HCPCS: 99395

== ENCOUNTER 2022-12-15 13:03 | Outpatient (REF) | payer BC, SELFPAY ==
[2022-12-15 17:19] LABS: CT PCR NOT DETECTED (Not Detect.); NG PCR NOT DETECTED (Not Detect.)
[2022-12-16 13:35] LABS: BV Int Neg Control Negative (Negative); BV Int Pos Control Positive (Positive)
[2022-12-18 03:59] LABS: HPV mRNA E6/E7 rflx Not Detected (Not Detected)
== END 2022-12-15 13:04 | disposition home or self-care (01) ==
LOC: HO.LNP 13:03
PROVIDERS: PCP Nurse Practitioner Family; Visit Provider Advanced Practice Midwife
DX: Z01.419 Encounter for gynecological examination (general) (routine) without abnormal findings (principal); Z20.2 Contact with and (suspected) exposure to infections with a predominantly sexual mode of transmission; Z97.5 Presence of (intrauterine) contraceptive device; Z79.899 Other long term (current) drug therapy
CPT/HCPCS: 0353U; 87480; 87510; 87624; 87660; 88142

== ENCOUNTER 2022-12-23 08:33 | Outpatient (REF) | payer BC, SELFPAY | END 2022-12-23 08:34 | disposition home or self-care (01) | LOC: HO.HMGCLDS 08:33 | PROVIDERS: PCP Nurse Practitioner Family; Visit Provider Advanced Practice Midwife | DX: Z01.419 Encounter for gynecological examination (general) (routine) without abnormal findings (principal); Z97.5 Presence of (intrauterine) contraceptive device | CPT/HCPCS: 36415; 86780; 86803; 87340; 87389 ==

== ENCOUNTER 2023-04-19 07:34 | Outpatient (AMB) | payer OTHER, SELFPAY ==
--- NOTE | 2023-04-19 07:40 | A.OFFPC_ITS ---
Vital Signs 04/19/23 07:43 Height 5 ft 9 in Weight 253 lb BMI 37.4 BP 112/70 Blood Pressure Location Rt brachial Position Sitting Pulse 75 Pulse Source Pulse Oximeter Pulse Oximetry (%) 97 Oxygen Delivery Method Room Air Intake Visit Reasons: PE Allergies azithromycin [From ZITHROMAX] Allergy (Unknown, Verified 04/19/23 07:42) UNKNOWN concord grape Allergy (Unknown, Uncoded 04/19/23 07:42) hives CONCORD GRAPES Allergy (Unknown, Uncoded 04/19/23 07:42) ITCHY THROAT Medication List - Last Reconciled 04/19/23 by Rory Martinez, QUANTITY SURVEYOR-BC albuterol sulfate 90 mcg/actuation (ProAir HFA) 2 puffs inhalation Q4-6H PRN ascorbate calcium (vitamin C) 500 mg PO DAILY biotin-calcium carbonate 800-195 mcg-mg (Biotin-Calcium) tabs PO cholecalciferol (vitamin D3) 25 mcg PO DAILY ferrous sulfate (Clayton-Time) 325 mg PO DAILY ibuprofen 800 mg PO Q8H PRN levonorgestrel (Mirena) intrauterine Tobacco use date assessed: 04/19/23 Dental Screening Dental Screen Date: 04/19/23 Did you have a dental visit in the last 12 months?: Yes Did you have a dental problem in the last 6 months where you did not have access to dental care?: Yes Was dental information given to patient?: Patient has dentist HPI PE HPI Details Pt is here for a PE. Will order labs. Has a obgyn hospitalist physician. Pt is seeing a therapist due to depression. She is interested in seeing a psychiatrist. Will have team contact pt. [facility] Medical History Nerve root compression Asthma Anemia Surgical History No pertinent past surgical history Family History Father CVD (cardiovascular disease) Arrhythmia Myocardial infarction Paternal Grandfather Cancer Maternal Grandmother Stroke Maternal Uncle Substance use disorder Mother Substance use disorder Mental health disorder Maternal Grandmother Mental health disorder Sister Mental health disorder Social History Housing: Apartment Alcohol intake: former Year quit: 2021 Patient Tobacco Use Status: Never used Tobacco e-Cigarette/Vaping Use: Never Used Second Hand Smoke Exposure: No service: No Current occupational status: employed Current occupation: [employer] Current occupational exposures/hazards: No Gender identity: Female Cognitive needs: No Hearing needs: No Vision needs: Yes Female Reproductive History Menstrual Age of Menarche: 14 Questionnaire PHQ-9 Over the last 2 weeks, how often have you been bothered by any of the following problems? 1. Little interest or pleasure in doing things: several days 2. Feeling down, depressed, or hopeless: several days 3. Trouble falling or staying asleep, or sleeping too much: nearly every day 4. Feeling tired or having little energy: nearly every day 5. Poor appetite or overeating: more than half the days 6. Feeling bad about yourself - or that you are a failure or have let yourself or your family down: not at all 7. Trouble concentrating on things, such as reading the newspaper or watching television: nearly every day 8. Moving or speaking so slowly that other people could have noticed. Or the opposite - being so fidgety or restless that you have been moving around a lot more than usual: not at all 9. Thoughts that you would be better off or of hurting yourself in some way: not at all Total score: 13 Depression Screening Interpretation: Positive (has a therapist currently. will reach out to our team to help pt find a psychiatrist) Depression Screening Follow-up: Existing condition and In treatment Depression Screening Done: Yes 41527 - PHQ-9 Billing: Yes Source: Developed by Drs. Jeremiah Parker, Sharon Salas, Martin Garcia and colleagues, with an educational stephanie from [employer]. Thrive Questionnaire Date Thrive assessed: 04/19/23 I am a: Patient What is your living situation today?: I have a steady place to live Within the past 12 months, did the food you bought not last and you didn't have the money to get more?: Never true Within the past 12 months, did you worry whether your food would run out before you got money to buy more?: Never true Do you have trouble paying for medicines?: No Do you have trouble getting transportation to medical appointments?: No Do you have trouble paying your heating and electricity bill?: No Do you have trouble taking care of your child, family member or friend?: No Do you have trouble with day-to-day activities such as bathing, preparing meals, shopping, managing finances, etc.?: No Are you currently unemployed and looking for a job?: No Are you interested in more education?: No THRIVE Score: 0 AUDIT C Alcohol Use Questionnaire (AUDIT-C) 1. How often do you have a drink containing alcohol?: Monthly or less 2. How many drinks containing alcohol do you have on a typical day when you are drinking?: 1 or 2 3. How often do you have six or more drinks on one occasion?: Never Total Score: 1 Score Reviewed/Action Taken: Yes RAMIRO-7 AMB Questionnaire RAMIRO-7 Date RAMIRO - 7 assessed: 04/19/23 Feeling nervous, anxious, or on edge: 1 = Several days Not being able to stop or control worryin = Not at all Worrying too much about different things: 0 = Not at all Trouble relaxin = Nearly every day Being so restless that it is hard to sit still: 0 = Not at all Becoming easily annoyed or irritable: 2 = More than half the days Feeling afraid as if something awful might happen: 0 = Not at all Total RAMIRO-7 score (0-4 normal; 5-9 mild; 10-14 moderate; 15-21 severe): 6 Source: Developed by Drs. Jeremiah Parker, Sharon Salas, Martin Garcia and colleagues, with an educational stephanie from [employer]. RAMIRO-7 Assessment Billing RAMIRO-7 Assessment Tool: RAMIRO-7 Assessment 60733 Review of Systems Const Denies chills and Denies fever(s) Eyes Denies blurry vision ENT Denies vertigo, Denies dizziness and Denies sore throat Card Denies chest pain at rest, Denies chest pain with activity, Denies diaphoresis, Denies dyspnea and Denies dyspnea on exertion Resp Denies cough, Denies dyspnea, Denies dyspnea on exertion and Denies wheezing GI Denies abdominal pain, Denies melena, Denies hematochezia, Denies constipation, Denies diarrhea and Denies loose stools Denies hematuria Musc Denies numbness and Denies tingling Skin/Breast Denies lesions Neuro Denies vertigo, Denies dizziness, Denies numbness and Denies tingling Psych Denies anxiety, Denies depression, Denies homicidal ideation, Denies suicidal ideation and Denies other (substance abuse) Aller/Immun Denies wheezing Physical exam (Primary Care) Vital Signs: Last Vital Signs Pulse 75 04/19/23 07:43 BP 112/70 04/19/23 07:43 Pulse Ox 97 04/19/23 07:43 Oxygen Delivery Method Room Air 04/19/23 07:43 BMI result Body Mass Index 37.4 Tobacco/Smoking Status: Tobacco use Status Tobacco use date assessed 04/19/23 04/19/23 07:44 Patient Tobacco Use Status Never used Tobacco 04/19/23 07:41 e-Cigarette/Vaping Use Never Used 04/19/23 07:41 PHQ-9: PHQ-9 Score PHQ-9: Total score 13 04/19/23 07:49 Depression Screening Interpretation: Positive (has a therapist currently. will reach out to our team to help pt find a psychiatrist) Depression Screening Follow-up: Existing condition and In treatment Thrive Assessment: Date of Thrive Assessment Date Thrive assessed 04/19/23 04/19/23 07:46 Const General: cooperative Nutritional Appearance: obese Orientation/consciousness: patient oriented x3 HENMT Head: Yes normal to inspection, Yes normocephalic and Yes atraumatic Ears: TM's normal bilaterally Eyes General: appearance normal, both eyes and all related structures Alignment and Position: alignment normal and position normal Neck Neck: Yes normal visual inspection and Yes no lymphadenopathy Thyroid: Thyroid normal Resp Effort & Inspection: normal respiratory effort Auscultation: clear to auscultation bilaterally Cardio Rate: regular rate Rhythm: regular rhythm Heart sounds: S1 normal heart sound present, S2 normal heart sound present and no murmurs GI Palpation (GI): Soft to palpation and nontender Auscultation: normal bowel sounds Skin Rashes: no rashes Neuro General: patient oriented x3, moves all extremities, no focal motor deficits and deep tendon reflexes 2+ bilaterally Romberg Test: Negative Psych Appearance: grossly normal Mental Status: mental status grossly normal Speech and movement: Normal speech and movement present Affect: normal affect Attitude: cooperative Thought process: Normal thought process present Thought content: Normal thought content present Insight: Good insight present (Psych) Judgement: Good judgement present (Psych) Assessment and Plan Assessment & Plan (1) Physical exam: Code(s): Z00.00 - Encounter for general adult medical examination without abnormal findings Plan: Labs ordered Plan The patient agreed to the use of a medical case manager for this encounter. Scribed for ARTHUR Rodríguez-RAS by Keila Chun medical case manager, on 04/19/2023 at 07:50 EST. Orders: Orders Comprehensive [place]. Panel Fast Today Z00.00 - Encounter for general adult medical examination without abnormal findings UA CC w/rflx Micro + Cult Today Z00.00 - Encounter for general adult medical examination without abnormal findings Lipid Panel Today Z00.00 - Encounter for general adult medical examination without abnormal findings Complete Blood Count Auto Diff Today Z00.00 - Encounter for general adult medical examination without abnormal findings TSH reflex Free T4 Today Z00.00 - Encounter for general adult medical examination without abnormal findings Coding Level of Care Code Est Pt Prev Care 18-39y(74323) Diagnoses Physical exam Z00.00 Additional Codes RAMIRO-7 Assessment Billing - RAMIRO-7 Assessment Tool: RAMIRO-7 Assessment 50891 ([id number])
[2023-04-19 07:43] VITALS: BP 112/70; PULSE 75; O2SAT 97; BMI 37.4
== END 2023-04-19 10:11 | disposition home or self-care (01) ==
PROVIDERS: Visit Provider Nurse Practitioner Family
DX: Z00.00 Encounter for general adult medical examination without abnormal findings (principal)
CPT/HCPCS: 99395

== ENCOUNTER 2023-05-04 10:58 | Outpatient (REF) | payer OTHER, SELFPAY ==
[2023-05-04 13:23] LABS: Appearance Urine Clear; Color Urine Yellow; Glucose Urine UA Negative (Negative); Leukocyte Esterase Urine Negative (Negative); MANUAL DIFF FLAG NO; Nitrite Urine Negative (Negative); UMIC TRIGGER UACC YES; Urine Blood Moderate (2+) (Negative); Urine Ketones Negative (Negative); Urine Protein Negative (Neg-Trace)
[2023-05-04 13:40] LABS: Basophils Percent Auto 0.4 % (0-2); Eosinophils Absolute Auto 0.1 X10*3/uL (0.0-0.4); Hematocrit 37.9 % (37.0-47.0); Hemoglobin 12.4 g/dl (12.0-16.0); Imm Gran Abs Auto 0.02 X10*3/uL (0.00-0.03); Imm Gran Pct Auto 0.2 % (0.0-0.4); Lymphocytes Absolute Auto 1.9 X10*3/uL (1.2-4.9); Lymphocytes Percent Auto 17.7 % (20-40); Mean Corpuscular HGB Conc 32.7 g/dl (31.0-35.0); Mean Corpuscular Volume 88.8 fL (80.0-98.0); Mean Platelet Volume 10.7 fL (9.4-12.3); Monocytes Absolute Auto 0.7 X10*3/uL (0.1-1.2); Monocytes Percent Auto 6.3 % (2-11); Neutrophils Absolute Auto 7.8 x10*3/uL (2.0-8.3); Neutrophils Percent Auto 74.4 % (45-73); Platelet Count 267 X10*3/uL (160-400); Red Blood Count 4.27 X10*6/uL (4.20-5.50); Red Cell Distribution Width 12.5 % (11.0-16.0); White Blood Count 10.5 X10*3/uL (4.8-10.8)
[2023-05-04 13:42] LABS: Bacteria Urine None Seen (None Seen); Hyaline Casts Urine 0-2 /LPF (0-2); Squamous Epithelial Cell Urine 0-2 /HPF (0-2); WBC Urine 0-5 /HPF (0-5)
[2023-05-04 13:59] LABS: Alanine Aminotransferase 15 U/L (0-31); Albumin Level 4.1 g/dL (3.5-5.0); Alkaline Phosphatase 60 U/L (39-117); Anion Gap 11 (12-20); Aspartate Amino Transferase 13 U/L (5-31); Bilirubin Total 1.2 mg/dL (0.0-1.0); Blood Urea Nitrogen 15 mg/dL (9-16); Calcium 9.1 mg/dL (8.4-10.2); Carbon Dioxide 27 mmol/L (22-29); Chloride 104 mmol/L (96-108); Cholesterol 176 mg/dL (<200); Estimated Glomerular Filt Rate > 60; Glucose Fasting 95 mg/dL (60-99); HDL Cholesterol 64 mg/dL (>40); LDL Cholesterol Calculated 102 mg/dL (<100); Potassium 4.6 mmol/L (3.3-5.1); Sodium 137 mmol/L (135-145); Total Protein 7.4 g/dL (6.5-8.0); Triglycerides 54 mg/dL (<150)
[2023-05-04 14:05] LABS: TSH reflex Free T4 1.21 uIU/mL (0.32-4.0)
== END 2023-05-04 10:59 | disposition home or self-care (01) ==
LOC: HO.HMGCLDS 10:58
PROVIDERS: PCP Nurse Practitioner Family; Visit Provider Nurse Practitioner Family
DX: Z00.00 Encounter for general adult medical examination without abnormal findings (principal)
CPT/HCPCS: 36415; 80053; 80061; 81001; 84443; 85025

== ENCOUNTER 2023-05-22 12:05 | Outpatient (REF) | payer OTHER, SELFPAY ==
[2023-05-22 14:06] LABS: Urine Cytology See Pathology rpt
[2023-05-22 14:11] LABS: Appearance Urine Clear; Color Urine Yellow; Glucose Urine UA Negative (Negative); Leukocyte Esterase Urine Negative (Negative); Nitrite Urine Negative (Negative); PH 6.5 (5.0-9.0); UMIC TRIGGER UACC YES; Urine Blood Small (1+) (Negative); Urine Ketones Negative (Negative); Urine Protein Negative (Neg-Trace)
[2023-05-22 14:13] LABS: Bacteria Urine None Seen (None Seen); Hyaline Casts Urine 0-2 /LPF (0-2); Squamous Epithelial Cell Urine 0-2 /HPF (0-2); WBC Urine 0-5 /HPF (0-5)
== END 2023-05-22 12:06 | disposition home or self-care (01) ==
LOC: HO.HMGCLDS 12:05
PROVIDERS: PCP Nurse Practitioner Family; Visit Provider Nurse Practitioner Family
DX: R31.29 Other microscopic hematuria (principal)
CPT/HCPCS: 81001; 87086; 88112

== ENCOUNTER 2023-06-21 15:31 | Outpatient (REF) | payer OTHER, SELFPAY ==
--- NOTE | ~2023-06-21 | CT_ITS ---
EXAMINATION: CT UROGRAM WITHOUT AND WITH CONTRAST CLINICAL INFORMATION: Reason for Exam R31.29 - Other microscopic hematuria COMPARISON: None available. TECHNIQUE: Helical scanning was performed with collimation through the abdomen and pelvis precontrast. Helical scanning was then repeated with submillimeter collimation through the abdomen and pelvis in the pyelogram phase with use of 85 mL of Omnipaque 300 intravenous contrast. Sagittal and coronal 2-D reconstructions were obtained. Multiple additional 3-D volume rendered images were obtained of the kidneys and collecting systems on an independent workstation under concurrent supervision. This CT examination was performed using dose optimization techniques as appropriate, variously including the following: *Automated exposure control *Adjustment of mA and/or kV according to patient size (this includes techniques or standardized protocols for targeted exams where dose is matched to indication/reason for exam; i.e. extremities or head) *Use of iterative reconstruction technique DLP: 1159 mGY*cm FINDINGS: LUNG BASES: Unremarkable. ABDOMINAL AND PELVIC WALL: Unremarkable. LIVER AND BILIARY TREE: Unremarkable. GALLBLADDER: Unremarkable. PANCREAS: Unremarkable. SPLEEN: Unremarkable. ADRENAL GLANDS: Unremarkable. KIDNEYS AND URETERS: The kidneys are normal in size, shape, and attenuation. No hydronephrosis, hydroureter, or calculi seen. No perinephric stranding. No obvious mass lesion or filling defect is seen in the collecting systems or ureters. Parapelvic left benign appearing cysts. Followup imaging is not routinely recommended for benign appearing cysts.. GASTROINTESTINAL TRACT: Unremarkable. VASCULAR: Unremarkable. LYMPH NODES/PERITONEUM: No lymphadenopathy. FREE FLUID: None. BLADDER: Unremarkable. PELVIC VISCERA: Intrauterine device is centered within the endometrial canal. OSSEOUS STRUCTURES: Unremarkable. CT/CT urogram IMPRESSION: . No obvious mass lesion or filling defect is seen in the collecting systems or ureters. Please note, this negative study does not obviate the need for cystoscopy if clinically warranted.
[2023-06-21] MEDS: iohexoL 350 MG/ML 100 ML INFUS..BTL 85 ML IV (16:21)
== END 2023-06-21 15:32 | disposition home or self-care (01) ==
LOC: HO.CT 15:31
PROVIDERS: PCP Nurse Practitioner Family; Visit Provider Nurse Practitioner Family
DX: R31.29 Other microscopic hematuria (principal)
CPT/HCPCS: 74178; Q9967

== ENCOUNTER 2023-06-30 12:51 | Outpatient (AMB) | payer OTHER, SELFPAY ==
--- NOTE | 2023-06-30 13:03 | MHC.OFFVIS ---
Intake Intake Visit Reasons: microhem. Intake Note: New Patient presents for initial visit for microscopic hematuria Urology Medications: none Blood Thinner: none Braze Operator Required: No Accompanied by: Self / Same As Patient Allergies azithromycin [From ZITHROMAX] Allergy (Unknown, Verified 06/30/23 13:40) UNKNOWN concord grape Allergy (Unknown, Uncoded 06/30/23 13:40) hives CONCORD GRAPES Allergy (Unknown, Uncoded 06/30/23 13:40) ITCHY THROAT Medication List - Last Reconciled 06/30/23 by SAVANNAH Green albuterol sulfate 90 mcg/actuation (ProAir HFA) 2 puffs inhalation Q4-6H PRN ascorbate calcium (vitamin C) 500 mg PO DAILY biotin-calcium carbonate 800-195 mcg-mg (Biotin-Calcium) tabs PO cholecalciferol (vitamin D3) 25 mcg PO DAILY ferrous sulfate (Clayton-Time) 325 mg PO DAILY ibuprofen 800 mg PO Q8H PRN levonorgestrel (Mirena) intrauterine HPI HPI Comments History of Present Illness Details Keila is a very pleasant 37-year-old female patient of Dr. Martinez. She has a past medical history of asthma, anemia, and microscopic hematuria. She presents to the office today as a new patient for microscopic hematuria. In discussion with the patient today she reports a longstanding history of intermittent microscopic hematuria in following up with Dr. Méndez approximately 5 years ago and underwent in office cystoscopy however does not recall findings. When asked she denies any previous history of nicotine dependence and or workplace chemical exposure. In review of patient's chart it appears CT urogram was ordered and performed. These results were reviewed with the patient today. No hydronephrosis, hydroureter, or calculi seen. No perinephric stranding. No obvious mass, lesion, or filling defect is seen in the collecting system or ureters. Peripelvic left benign-appearing cysts. The bladder is unremarkable. She otherwise denies any bothersome urinary issues or concerns. She denies urinary urgency, urinary frequency, incontinence, nocturia, hematuria, dysuria, foul smelling urine, changes to urinary stream, flank pain, fever, and or chills. She is happy with her current voiding parameters. In office urinalysis results reviewed with the patient today 2+ microscopic hematuria noted otherwise within normal limits. She otherwise offers no other issues or concerns at this time. [facility] Medical History Nerve root compression Asthma Anemia Surgical History No pertinent past surgical history Family History Father CVD (cardiovascular disease) Arrhythmia Myocardial infarction Paternal Grandfather Cancer Maternal Grandmother Stroke Maternal Uncle Substance use disorder Mother Substance use disorder Mental health disorder Maternal Grandmother Mental health disorder Sister Mental health disorder Social History Housing: Apartment Alcohol intake: former Year quit: 2021 Patient Tobacco Use Status: Never used Tobacco e-Cigarette/Vaping Use: Never Used Second Hand Smoke Exposure: No service: No Current occupational status: employed Current occupation: [employer] Current occupational exposures/hazards: No Gender identity: Female Cognitive needs: No Hearing needs: No Vision needs: Yes Female Reproductive History Menstrual Age of Menarche: 14 Review of Systems Const All systems reviewed & are unremarkable except as noted in HPI and below Physical Exam Const General: cooperative, healthy appearing, comfortable, no acute distress, well developed, alert and awake Nutritional Appearance: obese Orientation/consciousness: patient oriented x3 Limitations: no limitations HEENT Head: Yes normal to inspection, Yes normocephalic and Yes atraumatic Ears: hearing grossly normal bilaterally Eyes General: appearance normal, both eyes and all related structures Neck Neck: Yes normal visual inspection and Yes trachea midline Chest Chest palpation & inspection: normal inspection of the chest Resp Effort & Inspection: normal respiratory effort and able to speak in complete sentences Cardio Rate: regular rate GI Inspection: Yes normal to inspection General: Yes no CVA tenderness Back/Spine/Pelvis Back: no CVA tenderness Skin General skin exam: no rashes or lesions noted Neuro General: patient oriented x3 Extrem General: Yes normal to inspection Psych Appearance: grossly normal and well kempt Mental Status: mental status grossly normal Speech and movement: Normal speech and movement present and Clear speech present Affect: normal affect Attitude: cooperative Thought process: Normal thought process present Thought content: Normal thought content present Insight: Fair insight present (Psych) Judgement: Fair judgement present (Psych) Results AMB Urinalysis, Automated UA Leukoctes 0 Ronen/uL Last Edit by Ann Santiago on 06/30/23 13:30 UA Nitrite Negative Last Edit by Ann Santiago on 06/30/23 13:30 UA Urobilinogen 0.2 mg/dL Last Edit by Ann Santiago on 06/30/23 13:30 UA Protein 0 mg/dL Last Edit by Ann Santiago on 06/30/23 13:30 UA pH 6.0 Last Edit by [facility] on 06/30/23 13:30 UA Blood 80 James/uL Last Edit by [facility] MuseAmijorge on 06/30/23 13:30 UA Specific [place] 1.010 Last Edit by [facility] on 06/30/23 13:30 UA Ketone Negative Last Edit by [facility] on 06/30/23 13:30 UA Bilirubin 0 mg/dL Last Edit by [facility] on 06/30/23 13:30 UA Glucose 0 mg/dL Last Edit by [facility] on 06/30/23 13:30 Results Reviewed Results Reviewed: Laboratory Last Values Urine pH (Auto) 6.0 06/30/23 13:14 Specific [place] (Auto) 1.010 06/30/23 13:14 Urine Protein (Auto) 0 mg/dL 06/30/23 13:14 Glucose (UA)(Auto) 0 mg/dL 06/30/23 13:14 Urine Ketones (Auto) Negative 06/30/23 13:14 Urine Blood (Auto) 80 James/uL 06/30/23 13:14 Urine Nitrite (Auto) Negative 06/30/23 13:14 Urine Bilirubin (Auto) 0 mg/dL 06/30/23 13:14 Urine Urobilinogen (Auto) 0.2 mg/dL 06/30/23 13:14 Leukocyte Esterase (Auto) 0 Ronen/uL 06/30/23 13:14 Date of Service: 06/21/23 EXAMINATION: CT UROGRAM WITHOUT AND WITH CONTRAST FINDINGS: LUNG BASES: Unremarkable. ABDOMINAL AND PELVIC WALL: Unremarkable. LIVER AND BILIARY TREE: Unremarkable. GALLBLADDER: Unremarkable. PANCREAS: Unremarkable. SPLEEN: Unremarkable. ADRENAL GLANDS: Unremarkable. KIDNEYS AND URETERS: The kidneys are normal in size, shape, and attenuation. No hydronephrosis, hydroureter, or calculi seen. No perinephric stranding. No obvious mass lesion or filling defect is seen in the collecting systems or ureters. Parapelvic left benign appearing cysts. Followup imaging is not routinely recommended for benign appearing cysts.. GASTROINTESTINAL TRACT: Unremarkable. VASCULAR: Unremarkable. LYMPH NODES/PERITONEUM: No lymphadenopathy. FREE FLUID: None. BLADDER: Unremarkable. PELVIC VISCERA: Intrauterine device is centered within the endometrial canal. OSSEOUS STRUCTURES: Unremarkable. IMPRESSION: . No obvious mass lesion or filling defect is seen in the collecting systems or ureters. Please note, this negative study does not obviate the need for cystoscopy if clinically warranted. Assessment & Plan Assessment & Plan (1) Microscopic hematuria: Code(s): R31.29 - Other microscopic hematuria Plan In office urinalysis results reviewed with the patient today; as noted above; will send for urine cytology. Discussed at length potential causes of microscopic hematuria Recent CT urogram results reviewed with the patient today; as noted above. Patient currently denies any urinary issues or concerns. She reports be happy with current voiding parameters. Discussed surveillance monitoring verses in office cystoscopy; risks and benefits of these interventions were discussed. Follow-up in office cystoscopy; or sooner with any issues, concerns, and or questions. Orders: Orders AMB Urinalysis Automated Today Z13.9 - Encounter for screening, unspecified Urine Cytology Today R31.29 - Other microscopic hematuria Patient Instructions: The patient had an opportunity to ask questions regarding the treatment plan. All questions were answered. Physical exam, labs, and imaging were discussed and reviewed in detail. As well as risks, benefits, and discussion of treatment choices. No major barriers to understanding were identified. The patient expressed understanding and agreement with the above treatment plan. The patient was made aware they should contact our office by phone for worsening of their current condition, the appearance of new symptoms, or with any questions or concerns. Compliance is encouraged with any medications and follow up testing that is ordered. It is a privilege to be allowed the opportunity to participate in? your urological care.? Again, if you have any questions or concerns If you have any questions or concerns please do not hesitate to contact me. The office is [phone]. This note is constructed using voice recognition software. While every effort has been made to ensure accuracy director e learning errors may have been included. Yours sincerely, Ilene Dorsey, TRADE SHOW SPECIALIST-BC Coding Level of Care Code New Pt Level 3 (98849) Diagnoses Microscopic hematuria R31.29
== END 2023-06-30 13:44 | disposition home or self-care (01) ==
PROVIDERS: PCP Nurse Practitioner Family; Visit Provider Nurse Practitioner Family
DX: R31.29 Other microscopic hematuria (principal); Z13.9 Encounter for screening, unspecified
CPT/HCPCS: 99203

== ENCOUNTER 2023-06-30 12:51 | Outpatient (REF) | payer OTHER, SELFPAY ==
[2023-06-30 16:41] LABS: Urine Cytology See Pathology rpt
== END 2023-06-30 12:52 | disposition home or self-care (01) ==
LOC: HO.LNP 12:51
PROVIDERS: PCP Nurse Practitioner Family; Visit Provider Nurse Practitioner Family
DX: R31.29 Other microscopic hematuria (principal)
CPT/HCPCS: 81003; 88112

== ENCOUNTER 2023-08-03 09:01 | Outpatient (AMB) | payer OTHER, SELFPAY ==
--- NOTE | 2023-08-03 09:07 | A.OFFVIS_ITS ---
Intake Visit Reasons: cysto Intake Note: Patient is Present for Cystoscopy Urology Med: None Antibiotic Allergy: Azithromycin Blood Thinner:None URO- G Disposable Cystoscope lot: [id number] exp:04/15/2026 Allergies azithromycin [From ZITHROMAX] Allergy (Unknown, Verified 06/30/23 13:40) UNKNOWN concord grape Allergy (Unknown, Uncoded 06/30/23 13:40) hives CONCORD GRAPES Allergy (Unknown, Uncoded 06/30/23 13:40) ITCHY THROAT HPI Comments Details: Keila is a very pleasant female. She is a patient of Dr. Gross. She is seen for the following urologic conditions - microscopic hematuria Here for check cystoscopy Cystoscopy shows irritation touchdown area of bladder no other abnormality seen. Urethra in forward position and not retracted Microscopic hematuria Prior evaluation 2018 office cystoscopy negative Imaging - 05/08 CT urogram question parapelvic cyst benign Denies any prior history of nicotine dependence or workplace chemical exposure [facility] Medical History (Updated 07/04/23 @ 19:08 by Rory Martinez, [facility]) ADHD Nerve root compression Asthma Anemia Surgical History No pertinent past surgical history Family History Father CVD (cardiovascular disease) Arrhythmia Myocardial infarction Paternal Grandfather Cancer Maternal Grandmother Stroke Maternal Uncle Substance use disorder Mother Substance use disorder Mental health disorder Maternal Grandmother Mental health disorder Sister Mental health disorder Social History Housing: Apartment Alcohol intake: former Year quit: 2021 Patient Tobacco Use Status: Never used Tobacco e-Cigarette/Vaping Use: Never Used Second Hand Smoke Exposure: No service: No Current occupational status: employed Current occupation: [employer] Current occupational exposures/hazards: No Gender identity: Female Cognitive needs: No Hearing needs: No Vision needs: Yes Female Reproductive History Menstrual Age of Menarche: 14 Review of Systems Const Denies chills and Denies fever(s) Card Reports no additional complaints and Denies syncope Resp Denies cough GI Denies abdominal pain and Denies heartburn Reports as per HPI and Denies change in libido Neuro Denies syncope Psych Denies change in libido Endo Denies change in libido Physical Exam Const General: cooperative, healthy appearing, comfortable and no acute distress Orientation/consciousness: patient oriented x3 HEENT Face and sinus: Yes normal facial exam Mouth: moist mucous membranes Neck Neck: Yes normal visual inspection, Yes full ROM and Yes trachea midline Chest Chest palpation & inspection: normal inspection of the chest Resp Effort & Inspection: normal respiratory effort, able to speak in complete sentences and no respiratory distress GI Inspection: Yes normal to inspection Back/Spine/Pelvis Cervical Spine: normal cervical lordosis Thoracic/Lumbar Spine: thoracic and lumbar spine normal to inspection Skin General skin exam: no rashes or lesions noted Neuro General: patient oriented x3, gait normal, tone normal and moves all extremities Extrem General: Yes normal to inspection and Yes capillary refill normal Office Procedures Cystoscopy Consent Discussed risk and benefit or proposed procedure with the patient. Information consent for procedure given to the patient. Discussed technical aspects, risks, benefits and alternatives in full. Addressed all of the patient's questions and concerns regarding the procedure. The patient demonstrated knowledge and understanding. They wish to proceed with this procedure. Preparation The patient was prepped in the usual manner. A electrical mechanical technician was present and in the room. Genitalia was prepped with betadine solution in a sterile manner. Lidocaine Jelly 2% was placed into the urethra and 16Fr flexible Olympus cysto scope was inserted into the meatus after adequate lubrication. Procedure Meatus normal position, anterior Urethra normal Bladder examination with retroflexion of cystoscope Bladder Orifices normal shape and position Trigone mild injection Bladder Capacity normal Trabeculations - Cellule Formation - Diverticulum Formation - Mucosal Erythema slight hyperemia at touchdown zone of mid upper posterior wall Bladder Tumor - [id number] DISPOSABLE SCOPE URO-G FLEXIBLE SCOPE Procedure code (CPT) selection complete Office Meds lidocaine HCl 2 % mucosal jelly in applicator Performing Provider: Guillermo Méndez MD Performing Location: [facility] Administered by: Brendon Issa LPN on 08/03/23 09:22 Dose Route Admin Location Dispensed Lot Number Expiration Date [facility] [employer] 10 mL intra-urethral 10 mL nitrofurantoin monohydrate/macrocrystals 100 mg capsule Performing Provider: Guillermo Méndez MD Performing Location: [facility] Administered by: Brendon Issa LPN on 08/03/23 09:22 Dose Route Admin Location Dispensed Lot Number Expiration Date [facility] [employer] Director 100 mg PO 1 cap naproxen 500 mg tablet Performing Provider: Guillermo Méndez MD Performing Location: [facility] Administered by: Brendon Issa LPN on 08/03/23 09:22 Dose Route Admin Location Dispensed Lot Number Expiration Date [facility] [employer] 500 mg PO 1 tab Results AMB Urinalysis, Automated UA Leukoctes 15 Ronen/uL Last Edit by JOHNATHAN Schultz on 08/03/23 09:25 UA Nitrite Negative Last Edit by Aleksandra Nguyen A on 08/03/23 09:25 UA Urobilinogen 0.2 mg/dL Last Edit by MUNA SchultzA on 08/03/23 09:2 5 UA Protein 0 mg/dL Last Edit by MUNA SchultzA on 08/03/23 09:25 UA pH 6.0 Last Edit by MUNA SchultzA on 08/03/23 09:25 UA Blood 200 James/uL Last Edit by JOHNATHAN Schultz on 08/03/23 09:25 UA Specific [place] 1.015 Last Edit by Aleksandra Nguyen A on 08/03/23 09: 25 UA Ketone Negative Last Edit by JOHNATHAN Schultz on 08/03/23 09:25 UA Bilirubin 0 mg/dL Last Edit by MUNA SchultzA on 08/03/23 09:25 UA Glucose 0 mg/dL Last Edit by JOHNATHAN Schultz on 08/03/23 09:25 Results Reviewed Results Reviewed: Laboratory Last Values Urine pH (Auto) 6.0 08/03/23 09:24 Specific [place] (Auto) 1.015 08/03/23 09:24 Urine Protein (Auto) 0 mg/dL 08/03/23 09:24 Glucose (UA)(Auto) 0 mg/dL 08/03/23 09:24 Urine Ketones (Auto) Negative 08/03/23 09:24 Urine Blood (Auto) 200 James/uL 08/03/23 09:24 Urine Nitrite (Auto) Negative 08/03/23 09:24 Urine Bilirubin (Auto) 0 mg/dL 08/03/23 09:24 Urine Urobilinogen (Auto) 0.2 mg/dL 08/03/23 09:24 Leukocyte Esterase (Auto) 15 Ronen/uL 08/03/23 09:24 Assessment & Plan Assessment & Plan (1) Microscopic hematuria: Code(s): R31.29 - Other microscopic hematuria Category: Medical Plan Five year follow-up Orders: Orders AMB Cystoscopy Today R31.29 - Other microscopic hematuria AMB Urinalysis Automated Today Z13.9 - Encounter for screening, unspecified Patient Instructions: Imaging studies, laboratory and physical exam results were discussed and reviewed in detail. No major barriers to patient understanding were identified. An opportunity to ask questions regarding the treatment plan was provided. All questions were answered. The patient expressed understanding and agreement with the above treatment plan. The patient is aware they should contact our office by phone for worsening of their current condition or the appearance of new urologic symptoms. Compliance is encouraged with any medications and followup testing that is ordered. It is a privilege to participate in the urologic care of your patient. If you have any questions or concerns regarding treatment for the above conditions, or other urologic issues, please do not hesitate to contact me. The office te humberto contact is [phone]. This note is constructed using voice recognition software. While every effort has been made to ensure accuracy feeder tender errors may have been included. Yours sincerely, Dr Guillermo Méndez MD, [facility] - Urology Providers of Expert, Compassionate Care for the Genitourinary System Coding Level of Care Code Est Pt Level 3 (10580) Diagnoses Microscopic hematuria R31.29 CPT Codes Cystoscopy - CPT: 62811-[id number] ([id number])
== END 2023-08-03 09:56 | disposition home or self-care (01) ==
PROVIDERS: PCP Nurse Practitioner Family; Referring Provider Nurse Practitioner Family; Visit Provider Urology
DX: R31.29 Other microscopic hematuria (principal); Z13.9 Encounter for screening, unspecified
CPT/HCPCS: 52000

== ENCOUNTER → 2023-08-03 09:01 | Outpatient (BNVA) | payer OTHER, SELFPAY | PROVIDERS: PCP Nurse Practitioner Family; Visit Provider Urology | DX: R31.29 Other microscopic hematuria (principal) | CPT/HCPCS: 52000; 81003 ==

== ENCOUNTER 2023-12-17 08:48 | Outpatient (AMB) | payer OTHER, SELFPAY ==
[2023-12-17 09:25] VITALS: BP 118/60; PULSE 78; BMI 37.8
--- NOTE | 2023-12-17 09:25 | MHC.OFFVIS ---
Vital Signs 12/17/23 09:25 Height 5 ft 9 in Weight 255 lb 11.779 oz BMI 37.8 BP 118/60 Blood Pressure Location Lt brachial Position Sitting Pulse 78 Pulse Source Monitor Intake Visit Reasons: 1 yr f/up KM Allergies azithromycin [From ZITHROMAX] Allergy (Unknown, Verified 06/30/23 13:40) UNKNOWN concord grape Allergy (Unknown, Uncoded 06/30/23 13:40) hives CONCORD GRAPES Allergy (Unknown, Uncoded 06/30/23 13:40) ITCHY THROAT Medication List - Last Reconciled 12/17/23 by Patience Richardson, GENERAL SERVICE TECHNICIAN-C albuterol sulfate 90 mcg/actuation (ProAir HFA) 2 puffs inhalation Q4-6H PRN ascorbate calcium (vitamin C) 500 mg PO DAILY biotin-calcium carbonate 800-195 mcg-mg (Biotin-Calcium) tabs PO cholecalciferol (vitamin D3) 25 mcg PO DAILY ferrous sulfate (Clayton-Time) 325 mg PO DAILY ibuprofen 800 mg PO Q8H PRN levonorgestrel (Mirena) intrauterine sertraline (Zoloft) 50 mg PO DAILY HPI HPI 1 yr f/up KM: Details: Keila is a 38-year-old female with past medical history of lightheadedness, abnormal tilt-table test who presents for follow-up. Her last prior visit to our office was 12/07/2022. Today she reports that she had been doing well over the last year until October when she had strep throat then COVID. Since having those illnesses she has noticed more rapid heartbeats and lightheadedness. She is trying to increase her fluids and salt intake. She still feels some mild effects from the COVID illness. No chest discomfort at rest or with activity. No shortness of breath, PND, orthopnea or edema. No presyncope, syncope, falls. She tolerates normal day-to-day activities but has issues with prolonged standing. [facility] Medical History ADHD Nerve root compression Asthma Anemia Surgical History No pertinent past surgical history Family History Father CVD (cardiovascular disease) Arrhythmia Myocardial infarction Paternal Grandfather Cancer Maternal Grandmother Stroke Maternal Uncle Substance use disorder Mother Substance use disorder Mental health disorder Maternal Grandmother Mental health disorder Sister Mental health disorder Social History Housing: Apartment Alcohol intake: former Year quit: 2021 Patient Tobacco Use Status: Never used Tobacco e-Cigarette/Vaping Use: Never Used Second Hand Smoke Exposure: No service: No Current occupational status: employed Current occupation: [employer] Current occupational exposures/hazards: No Gender identity: Female Cognitive needs: No Hearing needs: No Vision needs: Yes Female Reproductive History Menstrual Age of Menarche: 14 Review of Systems Const All systems reviewed & are unremarkable except as noted in HPI and below Denies weakness ENT Reports dizziness Card Denies chest pain, Denies chest pain at rest, Denies chest pain with activity, Denies syncope, Reports rapid heart rate (with activity), Denies pedal edema, Denies edema, Denies leg edema, Denies lightheadedness, Denies palpitations, Denies dyspnea, Denies dyspnea on exertion and Denies orthopnea Resp Denies cough, Denies dyspnea and Denies dyspnea on exertion GI Denies hematochezia and Denies change in stool character Musc Denies abnormal gait, Denies muscle cramps, Denies muscle weakness, Denies numbness, Denies radiating pain into limb and Denies tingling Neuro Denies abnormal gait, Reports dizziness, Denies syncope, Denies numbness, Denies tingling and Denies weakness Endo Denies palpitations Physical Exam Vital Signs: Last Vital Signs Pulse 78 12/17/23 09:25 BP 118/60 12/17/23 09:25 BMI result Body Mass Index 37.8 Const General: cooperative, healthy appearing, comfortable and no acute distress Orientation/consciousness: patient oriented x3 Neck Neck: Yes normal visual inspection Resp Effort & Inspection: normal respiratory effort Auscultation: clear to auscultation bilaterally, no crackles, no rales, no rhonchi and no wheezes Cardio Jugular venous distension: no JVD Rate: regular rate Rhythm: regular rhythm Heart sounds: S1 normal heart sound present, S2 normal heart sound present, no murmurs and no rubs Neuro General: patient oriented x3 Extrem General: Yes normal to inspection and No no pedal edema Psych Appearance: grossly normal Mental Status: mental status grossly normal Speech and movement: Normal speech and movement present Office Procedures EKG Details: Today, read by me, normal sinus rhythm, no acute ST or T-wave abnormalities, rate 78, QTC 428 milliseconds [id number], Complete Assessment & Plan Assessment & Plan (1) Dizziness: Code(s): R42 - Dizziness and giddiness Category: Medical Plan: Initial cardiac evaluation for symptoms of dizziness, presyncope. Echocardiogram done 02/27/2020 showed EF 55-60%, no valve abnormalities. Holter monitor done 12/19/2019 showed sinus rhythm with rate range 52 to 155, average 77 with rare SVE. A tilt-table test was done on 01/30/2020 with symptoms of presyncope, blood pressure low 78/49, conclusion of dehydration. Since that time she has been increasing her fluid and salt intake. Overall she has been doing well since that time with conservative management. More recently she is noticing an increase in symptoms which she relates to having back to back illness with strep throat and then COVID, 10/2023. Blood pressure is normal at this time. No indication for medical management at present. She has no presyncope, syncope, falls. She recognizes symptoms of lightheadedness with prolonged standing and then will sit. Discussed possible diagnosises of orthostatic hypotension, early POTS. Reviewed the need to continue increasing her fluid intake to at least 64 oz daily and including Gatorade 3 times weekly. [place] use of salt, canned soups. Wear compression stockings daily or if she is in a situation with prolonged standing or walking. Slow position changes when getting out of bed. Sit down/laid down if she becomes symptomatic. Cardiology follow-up in 1 year, sooner if needed Plan Time spent on chart review, documentation, interview and assessment Coding Level of Care Code Est Pt Level 3 (21158) Complex EM visit Add On G2211 Diagnoses Dizziness R42 CPT Codes EKG - CPT: 58786-[id number], Complete ([id number]) Time Spent (min) 28
== END 2023-12-17 09:51 | disposition home or self-care (01) ==
PROVIDERS: PCP Nurse Practitioner Family; Visit Provider Nurse Practitioner Family
DX: R42 Dizziness and giddiness (principal)
CPT/HCPCS: 93010; 99213

== ENCOUNTER → 2023-12-17 08:48 | Outpatient (BNVA) | payer OTHER, SELFPAY | PROVIDERS: PCP Nurse Practitioner Family; Visit Provider Nurse Practitioner Family | DX: R42 Dizziness and giddiness (principal); R55 Syncope and collapse | CPT/HCPCS: 93005 ==

== ENCOUNTER 2023-12-20 08:10 | Outpatient (AMB) | payer OTHER, SELFPAY ==
[2023-12-20 08:32] VITALS: BP 116/78; PULSE 87; O2SAT 95; BMI 37.7
--- NOTE | 2023-12-20 08:32 | MHC.OFFWIV ---
Intake Vital Signs 12/20/23 08:32 Height 5 ft 9 in Weight 255 lb BMI 37.7 BP 116/78 Blood Pressure Location Lt brachial Position Sitting Pulse 87 Pulse Source Pulse Oximeter Pulse Oximetry (%) 95 Oxygen Delivery Method Room Air Intake Visit Reasons: EP Sore throat Intake Note: Patient here for sore throat Patient Tobacco Use Status: Never used Tobacco Allergies azithromycin [From ZITHROMAX] Allergy (Unknown, Verified 12/20/23 08:33) UNKNOWN concord grape Allergy (Unknown, Uncoded 12/20/23 08:33) hives CONCORD GRAPES Allergy (Unknown, Uncoded 12/20/23 08:33) ITCHY THROAT Do you need a note to return to daycare/school/sports/work: No HPI HPI Comments History of Present Illness Details Patient is a 38-year-old female complaining of 2 months of throat issues. She tells me she was diagnosed with strep 4 times in the past 2 months at an urgent care near her house. She took the antibiotics each time in full and felt better each time but about 10 days later would develop another strep infection. She tested negative for gonorrhea and chlamydia in her throat and she states they did a further workup been everything has come back negative except for strep. Currently, she says she has a sore throat for a few days but she denies any cough or fevers. [facility] Medical History ADHD Nerve root compression Asthma Anemia Surgical History No pertinent past surgical history Family History Father CVD (cardiovascular disease) Arrhythmia Myocardial infarction Paternal Grandfather Cancer Maternal Grandmother Stroke Maternal Uncle Substance use disorder Mother Substance use disorder Mental health disorder Maternal Grandmother Mental health disorder Sister Mental health disorder Social History Housing: Apartment Alcohol intake: former Year quit: 2021 Patient Tobacco Use Status: Never used Tobacco e-Cigarette/Vaping Use: Never Used Second Hand Smoke Exposure: No service: No Current occupational status: employed Current occupation: [employer] Current occupational exposures/hazards: No Gender identity: Female Cognitive needs: No Hearing needs: No Vision needs: Yes Female Reproductive History Menstrual Age of Menarche: 14 Review of Systems Const All systems reviewed & are unremarkable except as noted in HPI and below Physical Exam Vital Signs: Last Vital Signs Pulse 87 12/20/23 08:32 BP 116/78 12/20/23 08:32 Pulse Ox 95 12/20/23 08:32 Oxygen Delivery Method Room Air 12/20/23 08:32 BMI result Body Mass Index 37.7 Const General: cooperative, healthy appearing, comfortable and no acute distress Orientation/consciousness: patient oriented x3 Limitations: no limitations HEENT Head: Yes normal to inspection Ears: hearing grossly normal bilaterally, external ears normal and TM's normal bilaterally General nose exam: Normal external nose present, Normal nares present and No nasal discharge present Face and sinus: Yes normal facial exam and Yes sinuses nontender Mouth: Normal oral and palatal mucosa present and moist mucous membranes Throat: Yes tonsils normal, Yes uvula midline and Yes posterior oropharynx abnormal (Erythema) Eyes General: appearance normal, both eyes and all related structures Neck Neck: Yes normal visual inspection Resp Effort & Inspection: normal respiratory effort, able to speak in complete sentences, no respiratory distress, not tachypneic, no tripod positioning and no use of accessory muscles Skin General skin exam: no rashes or lesions noted Neuro General: patient oriented x3 Extrem General: Yes normal to inspection and Yes no clubbing, cyanosis or edema Assessment & Plan Assessment & Plan (1) Sore throat: Code(s): J02.9 - Acute pharyngitis, unspecified Plan: No exudates on exam, sent throat culture, we did not do a rapid strep in office. We will message PCP for referral to ENT. Plan see above Orders: Orders Throat Culture Today J02.9 - Acute pharyngitis, unspecified Coding Level of Care Code Est Pt Level 4 (84307) Diagnoses Sore throat J02.9
== END 2023-12-20 09:04 | disposition home or self-care (01) ==
PROVIDERS: PCP Nurse Practitioner Family; Visit Provider Physician Assistant
DX: J02.9 Acute pharyngitis, unspecified (principal); Z13.9 Encounter for screening, unspecified

== ENCOUNTER 2023-12-20 08:10 | Outpatient (REF) | payer OTHER, SELFPAY | END 2023-12-20 08:11 | disposition home or self-care (01) | LOC: HO.LAB 08:10 | PROVIDERS: PCP Nurse Practitioner Family | DX: J02.9 Acute pharyngitis, unspecified (principal) | CPT/HCPCS: 87070; 87147; 87880 ==

== ENCOUNTER 2024-01-25 10:16 | Outpatient (AMB) | payer OTHER, SELFPAY ==
--- NOTE | 2024-01-25 10:26 | MHC.OFFVIS ---
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 Present Allergies azithromycin [From ZITHROMAX] Allergy (Unknown, Verified 01/25/24 10:29) UNKNOWN concord grape Allergy (Unknown, Uncoded 01/25/24 10:29) hives CONCORD GRAPES Allergy (Unknown, Uncoded 01/25/24 10:29) ITCHY THROAT Medication List - Last Reconciled 01/25/24 by Ursula Thompson CNM albuterol sulfate 90 mcg/actuation (ProAir HFA) 2 puffs inhalation Q4-6H PRN ascorbate calcium (vitamin C) 500 mg PO DAILY biotin-calcium carbonate 800-195 mcg-mg (Biotin-Calcium) tabs PO cholecalciferol (vitamin D3) 25 mcg PO DAILY dextroamphetamine-amphetamine 10 mg ER 1 cap PO QAM ferrous sulfate (Clayton-Time) 325 mg PO DAILY ibuprofen 800 mg PO Q8H PRN levonorgestrel (Mirena) intrauterine sertraline (Zoloft) 50 mg PO DAILY Is last menstrual period known: No (IUD) Do you need a note to return to daycare/school/sports/work: No HPI HPI PUMPER HAND annual exam: Details: Patient is here for her annual exam she still has a Mirena in and she decided not to miss with the yet because she is not getting her periods and she is using condoms as a backup anyway. She is happy enough with the Mirena and happy not getting her periods [facility] just to be extra thorough and even had oral testing done.. 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 She has always had hematuria so she has had some extra tests checking for that they have always been negative. [facility] Medical History ADHD Nerve root compression Asthma Anemia Surgical History No pertinent past surgical history Family History Father CVD (cardiovascular disease) Arrhythmia Myocardial infarction Paternal Grandfather Cancer Maternal Grandmother Stroke Maternal Uncle Substance use disorder Mother Substance use disorder Mental health disorder Maternal Grandmother Mental health disorder Sister Mental health disorder Social History Housing: Apartment Alcohol intake: former Year quit: 2021 Patient Tobacco Use Status: Never used Tobacco e-Cigarette/Vaping Use: Never Used Second Hand Smoke Exposure: No service: No Current occupational status: employed Current occupation: [employer] Current occupational exposures/hazards: No Gender identity: Female Cognitive needs: No Hearing needs: No Vision needs: Yes Female Reproductive History Menstrual Age of Menarche: 14 Duration of menses: 3-5 days control method: progestin IUCD Total pregnancies: 0 Date of last pap smear: 12/15/22 (negative,2019,WNL) History of abnormal pap smear: No Physical Exam Vital Signs: Last Vital Signs BP 118/78 01/25/24 10:27 BMI result Body Mass Index 37.5 Const General: healthy appearing, comfortable, no acute distress, well developed and alert Nutritional Appearance: average body habitus Orientation/consciousness: patient oriented x3 Limitations: no limitations HEENT Head: Yes normocephalic Neck Neck: Yes normal visual inspection Chest Chest palpation & inspection: normal inspection of the chest Breast/axilla inspection: normal inspection of the breasts and normal inspection of the axillae Breast/axilla palpation: normal palpation of the breasts and normal palpation of the axillae Resp Effort & Inspection: normal respiratory effort GI Inspection: Yes normal to inspection, No Abdominal wall edema and No distended Palpation (GI): Soft to palpation and nontender Other: Normal parking worker external and internal exam cervix is nulliparous pink smooth with no discharge Mirena strings are not visible and could not be teased from os even with Cytobrush x2. Cervix is long close nulliparous mobile nontender uterus is small midposition to retroverted mobile nontender adnexa not enlarged nontender good tone with Kegel General: Yes bladder normal to palpation External Female Exam: normal external appearance and normal appearance of the urethra Speculum Exam - Vagina: normal appearance of the vagina, normal palpation and normal vaginal discharge Speculum Exam - Cervix: normal appearance of the cervix, normal palpation and nontender Bimanual exam- vagina & uterus: normal bimanual exam, normal palpation, uterine size normal, bladder normal to palpation, consistency normal, normal palpation, uterine mobility normal, uterine shape normal, No Cervical tenderness present, non-tender and no cervical motion tenderness Bimanual Exam- Adnexa, other: normal adnexae, no masses, normal and No adnexal tenderness Neuro General: patient oriented x3 Results Reviewed Results Reviewed: Name: Keila Spangler Age/Sex: 37/F Attending: Ursula Thompson CNM : 1985 Submitted by: Ursula Thompson CNM Copies to: Rory Martinez MR #: [id number] Status: DEP REF Collected: 12/15/22 Location: [facility] Received: 12/16/22 Interpretation Satisfactory for evaluation. No endocervical cells seen. Fungal organisms consistent with Racquel species. Negative for intraepithelial lesion or malignancy. HPV mRNA E6/E7: NOT DETECTED This assay detects E6/E7 viral messenger RNA (mRNA) from 14 high-risk HPV types (16, 18, 31, 33, 35, 39, 45, 51, 52, 56, 58, 59, 66, 68) HPV testing performed by [facility], [place], [place]. See reference laboratory pion of the EMR for entire report. Clinical Information LMP: No menses, Mirena Previous PAP test: 06/13/18, WNL Other history: Encounter for screening for malignant neoplasm of cervix Material Received ThinPrep-Cervical Copies To Rory Martinez 1961 [facility] [place] [address] Ursula Thompson CNM [address] [place] [address] [place] [address] Electronically Signed By: DAILY Zamorano (ASCP) 12/18/22 1118 The Pap Test is a screening procedure with the inherent possibility of both false negative and false positive results. Results should be interpreted in the context of historic and current clinical findings. Reliability of the Pap Test is enhanced by performing the test on a Patient: Keila Spangler Age/Sex: 37/F MR#: [id number] Page 1 of 2 Gynecologic Cytology [id number] regular repetitive basis. Patient: Keila Spangler Age/Sex: 37/F MR#: [id number] Assessment & Plan Assessment & Plan (1) Screen for sexually transmitted diseases: Code(s): Z11.3 - Encounter for screening for infections with a predominantly sexual mode of transmission Category: Medical (2) Presence of 52 mg levonorgestrel-releasing intrauterine device (IUD): Comment: Inserted May 2017 due for replacement around May 2022.; patient is not yet getting menses and is using condoms as a backup and prefers to wait out replacement until return of menses or 8 years. Code(s): Z97.5 - Presence of (intrauterine) contraceptive device Category: Social Hx (3) Cervical cancer screening: Comment: 12/15/2022 Pap is negative with negative HPV. Code(s): Z12.4 - Encounter for screening for malignant neoplasm of cervix Category: Medical (4) Well woman exam with routine gynecological exam: Code(s): Z01.419 - Encounter for gynecological examination (general) (routine) without abnormal findings Category: Medical Plan -----Discussed in this visit the following: healthy balanced diet, regular and consistent exercise, getting recommended health screens, doing the best she can for her particular health concerns, kegel exercises, pap smear screening and followup recommendations, mammography screening and SBE, normal changes in cycles in her life stage--- . She tries to walk and she tries to swim when she is able to get to a 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 She got screened extra for STIs as there was a change in relationships this past October and [facility] she feels like she was very thorough. As regards the Mirena the string was not able to be teased out of the os did discuss that when it is time for placement if the string is still not visible she would need to see underwriting sales representative the hospital to attempt removal and replacement. For now she is happy that she is not getting her. We did discuss the length of time that it can used for 5-8 years at the last visit detail she has decided to ride it out and as long as she is not getting her menses. And she will go as long in the years as possible. She is using condoms as a backup anyway and when it comes time to replace it if the string is not visible then we will have discussions about that I did discuss with her that use of misoprostol whether her menses have returned or not would probably be an added bone is to helping her cervix soften for the procedure. . Coding Level of Care Code Est Pt Prev Care 18-39y(15568) Diagnoses Screen for sexually transmitted diseases Z11.3 Presence of 52 mg levonorgestrel-releasing intrauterine device (IUD) Z97.5 Cervical cancer screening Z12.4 Well woman exam with routine gynecological exam Z01.419
[2024-01-25 10:27] VITALS: BP 118/78; BMI 37.5
== END 2024-01-25 12:15 | disposition home or self-care (01) ==
PROVIDERS: PCP Nurse Practitioner Family; Visit Provider Advanced Practice Midwife
DX: Z01.419 Encounter for gynecological examination (general) (routine) without abnormal findings (principal); Z11.3 Encounter for screening for infections with a predominantly sexual mode of transmission; Z97.5 Presence of (intrauterine) contraceptive device; Z12.4 Encounter for screening for malignant neoplasm of cervix
CPT/HCPCS: 99395

== ENCOUNTER 2024-01-25 10:16 | Outpatient (REF) | payer OTHER, SELFPAY ==
[2024-01-26 02:53] LABS: CT PCR NOT DETECTED (Not Detect.); NG PCR NOT DETECTED (Not Detect.)
[2024-01-26 11:10] LABS: Bacterial Vaginosis PCR POSITIVE (Negative); Candida Group PCR NOT DETECTED (Not Detect); Candida glab krusei PCR NOT DETECTED (Not Detect); Trichomonas vaginalis PCR NOT DETECTED (Not Detect)
== END 2024-01-25 10:17 | disposition home or self-care (01) ==
LOC: HO.LAB 10:16
PROVIDERS: PCP Nurse Practitioner Family; Visit Provider Advanced Practice Midwife
DX: Z01.419 Encounter for gynecological examination (general) (routine) without abnormal findings (principal); N89.8 Other specified noninflammatory disorders of vagina; Z20.2 Contact with and (suspected) exposure to infections with a predominantly sexual mode of transmission
CPT/HCPCS: 0352U; 87491; 87591

== ENCOUNTER 2024-07-17 09:28 | Outpatient (REF) | payer OTHER, SELFPAY ==
[2024-07-17 16:23] LABS: Bacterial Vaginosis PCR POSITIVE (Negative); Candida Group PCR NOT DETECTED (Not Detect); Candida glab krusei PCR NOT DETECTED (Not Detect); Trichomonas vaginalis PCR NOT DETECTED (Not Detect)
[2024-07-17 16:56] LABS: CT PCR NOT DETECTED (Not Detect.); NG PCR NOT DETECTED (Not Detect.)
== END 2024-07-17 09:29 | disposition home or self-care (01) ==
LOC: HO.LNP 09:28
PROVIDERS: PCP Nurse Practitioner Family; Visit Provider Advanced Practice Midwife
DX: Z30.433 Encounter for removal and reinsertion of intrauterine contraceptive device (principal)
CPT/HCPCS: 58300; 58301; 81515; 87491; 87591; J7298

== ENCOUNTER 2024-07-17 09:28 | Outpatient (AMB) | payer OTHER, SELFPAY ==
--- NOTE | 2024-07-17 09:38 | MHC.OFFVIS ---
Vital Signs 07/17/24 09:58 Height 5 ft 9 in Weight 255 lb BMI 37.7 BP 116/72 Intake Visit Reasons: Mirena Removal consult Curriculum Assistant Principal: Curriculum Assistant Principal Present (Marisol) Accompanied by: Self / Same As Patient Allergies azithromycin [From ZITHROMAX] Allergy (Unknown, Verified 07/17/24 09:55) UNKNOWN concord grape Allergy (Unknown, Uncoded 01/25/24 10:29) hives CONCORD GRAPES Allergy (Unknown, Uncoded 01/25/24 10:29) ITCHY THROAT Medication List - Last Reconciled 07/17/24 by Ursula Thompson CNM albuterol sulfate 90 mcg/actuation (ProAir HFA) 2 puffs inhalation Q4-6H PRN ascorbate calcium (vitamin C) 500 mg PO DAILY biotin-calcium carbonate 800-195 mcg-mg (Biotin-Calcium) tabs PO cholecalciferol (vitamin D3) 25 mcg PO DAILY dextroamphetamine-amphetamine 10 mg ER 1 cap PO QAM ferrous sulfate (Clayton-Time) 325 mg PO DAILY ibuprofen 800 mg PO Q8H PRN levonorgestrel (Mirena) intrauterine sertraline (Zoloft) 50 mg PO DAILY Is last menstrual period known: Yes Last menstrual period: 07/10/24 Post menopausal: No Patient : No HPI HPI Mirena Removal consult: Details: Patient is here for a Mirena consult removal. She started getting her periods back and they have been coming exactly on time she got a very light 1 in the beginning of June and then another light 1 at the beginning of last week which just ended. She has been using condoms since her period came back as a precaution. She knows the strings are not visible she said it was confirmed in an ultrasound but she does not remember where but she thought it might of been here. I am unable to find that ultrasound in the system but she has no doubt about it being in place. She is very sure she wants it replaced She says that she cleared it with the assistant front desk manager and the appointment had been rescheduled and she was very clear that she wanted it removed and replaced today and she said she cleared it with the assistant front desk manager and they were very clear about it.. She is upset because she said she had a consultation about removing it previously. We Did discuss this issue of replacing it when her menses returned at her last annual exam.-Ursula Thompson CNM 07/17/2024. HPI Comments Details: Presenting requesting Mirena removal and reinsertion. Date of insertion with 05/2017 [facility] Medical History ADHD Nerve root compression Asthma Anemia Surgical History No pertinent past surgical history Family History Father CVD (cardiovascular disease) Arrhythmia Myocardial infarction Paternal Grandfather Cancer Maternal Grandmother Stroke Maternal Uncle Substance use disorder Mother Substance use disorder Mental health disorder Maternal Grandmother Mental health disorder Sister Mental health disorder Social History Housing: Apartment Alcohol intake: former Year quit: 2021 Patient Tobacco Use Status: Never used Tobacco e-Cigarette/Vaping Use: Never Used Second Hand Smoke Exposure: No service: No Current occupational status: employed Current occupation: [employer] Current occupational exposures/hazards: No Gender identity: Female Cognitive needs: No Hearing needs: No Vision needs: Yes Female Reproductive History Menstrual Age of Menarche: 14 Duration of menses: 3-5 days Date of last menstrual period: 07/10/24 control method: progestin IUCD (Mirena) Total pregnancies: 0 Date of last pap smear: 12/15/22 (negativ pap smear, negative hpv ) Physical Exam Vital Signs: Last Vital Signs BP 116/72 07/17/24 09:58 BMI result Body Mass Index 37.7 Other: External exam within normal limits vagina pink and moist there is a slightly yellowish whitish slightly bubbly wish discharge which could be consistent with post menses. Cervix probed with Cytobrush after doing testing for gonorrhea chlamydia trichomoniasis bacterial vaginosis and yeast in preparation for Mirena replacement, strings not visible or able to be teased out of cervix but there was very clear mucus possibly consistent with pending ovulation. Bimanual done cervix mobile nontender midposition. Uterus is small firm midposition to slightly retro reverted not retroflexed. Nontender and mobile adnexa nontender good muscle tone.----Ursula Thompson [facility] 07/17/2024. External Female Exam: normal external appearance Speculum Exam - Vagina: normal appearance of the vagina and normal vaginal discharge Speculum Exam - Cervix: normal appearance of the cervix Bimanual exam- vagina & uterus: normal bimanual exam, uterine size normal, consistency normal, uterine mobility normal, uterine shape normal and non-tender Bimanual Exam- Adnexa, other: normal adnexae, no masses and No adnexal tenderness Office Procedures IUD Insert/Removal Details Details: Counseling/Consent: After discussing with the patient the risks of the procedure including bleeding, infection, scar tissue formation, , possible injury to blood vessels or nerves, chronic arm pain, blood transfusion, and irregular unpredictable bleeding Alternative options were discussed with the patient including but not limited: Do nothing. The patient signed the consent and agreed with the plan; all questions answered. Urine test was done in the office and was negative Preop dx: Requesting IUD removal Op: IUD removal Post op dx: same EBL= 10 cc Procedure: The patient was put in the dorsal lithotomy position a speculum was inserted in the vagina the IUD thread identified. Using a Emily clamp the thread was grasped and the IUD pulled out with no complications. The patient tolerated the procedure well and was advised to use a different method for contraception. Discharge instructions: Instructions were given to the pt to call if temp>100.4, abdominal pain heavy vaginal bleeding, n/v occur. The patient verbalized understanding and all questions answered. This note was generated with a voice recognition program. Some errors may have been overlooked during the review of this note. Sometimes these errors may affect the content or meaning of a given sentence. 50455-CTV Removal Procedure code (CPT) selection complete IUD Insert/Removal Details Details: The patient is presenting for Mirena IUD insertion Urine test was done in the office and was negative; All the contraindications were excluded. The following possible complications were discussed with the patient: Intrauterine , Ectopic , Sepsis, Pelvic Infection, Irregular Bleeding and Amenorrhea, Perforation, Expulsion, Ovarian Cysts, Breast Cancer, The following adverse effects were discussed with the patient: alteration of menstrual bleeding pattern, including: unscheduled uterine bleeding decreased uterine bleeding increased scheduled uterine bleeding female genital tract bleeding ,amenorrhea , genital discharge , vulvovaginitis , breast pain , benign ovarian cyst and associated complications , dysmenorrhea , Gastrointestinal disorders abdominal/pelvic pain, headache/migraine , back pain , acne , depression Alternative options were discussed with the patient including but not limited: control pills, patch, NuvaRing, Depo-medroxyprogesterone acetate, Nexplanon, copper IUD, sterilization, vasectomy, others The procedure was explained in detail to patient , at the end patient signed the informed consent obtained. A no touch technique was used throughout the procedure. A speculum was placed into vagina and cervix was cleaned with betadine). A tenaculum was placed. A plastic sound was advanced through the external and internal os until it reached the fundus of the uterus, the depth was 8 cm. The sound was then withdrawn. The IUD was loaded in a sterile manner and advanced into position. The string was visualized and cut to 3 cm. Tenaculum site hemostatic. All instruments removed from vagina. Patient tolerated the procedure well. NO complications were noted. Patient was instructed to call for fever over 100.4, significant pain unrelieved by Motrin, IUD expulsion, heavy bleeding, or abnormal discharge. In addition, the following clinical considerations were discussed with the patient to call for removal: A stroke or heart attack ,Very severe or migraine headaches ,Unexplained fever ,Yellowing of the skin or whites of the eyes, as these may be signs of serious liver problems , or suspected , Pelvic pain or pain during sex ,HIV positive seroconversion in herself or her partner , Possible exposure to sexually transmitted infections Unusual vaginal discharge or genital sores , severe vaginal bleeding or bleeding that lasts a long time, or if she misses a menstrual period, Inability to feel Mirena's threads Counseled the patient that the IUD does not protect against STI's, recommended use of condoms for the first 7 days post insertion and explained to the patient that condoms are recommended for patients at risk for sexually transmitted infections. Informed the patient that Mirena IUD is FDA approved for 8 years for contraception for 5 years for the treatment of heavy menses Instructed the patient to schedule a Follow up appointment in 4 to 6 weeks following insertion. This note was generated with a voice recognition program. Some errors may have been overlooked during the review of this note. Sometimes these errors may affect the content or meaning of a given sentence. 49156-WQX Insertion 35335-TTI Removal Procedure code (CPT) selection complete Office Meds Mirena 21 mcg/24 hr (up to 8 years) 52 mg intrauterine device Performing Provider: Giacomo Rosales MD Performing Location: [facility] Administered by: Giacomo Rosales MD on 07/17/24 11:20 Dose Route Admin Location Dispensed Lot Number Expiration Date [facility] Optical Instrument Specialist 1 device intrauterine [facility] [place] 1 device [id number] 09/11/26 01741-145-44 [employer] Assessment & Plan Assessment & Plan (1) Remove/insert IUD: Code(s): Z30.433 - Encounter for removal and reinsertion of intrauterine contraceptive device Category: Medical Plan: Explained with the patient Mirena is FDA approved for contraception for 8 years offered the patient removal and reinsertion in 8 months, the patient prefers to have it done today. GC/CT done, urine test done in the office was negative, Mirena IUD removed and new Mirena IUD insertion done, see procedure note Plan I reviewed with the patient her cycles her returned to normal cycles as she remembers them and her careful use of condoms she has had no unprotected sex since the last menses which started 7 days ago and ended Wednesday,(light for 2 days stopped for day then light again for 2 days). Patient disclosed that she had a full conversation with the assistant front desk manager and took the day off from work anticipating replacement and removal today. As the string is not visible I am not able to do this. Discussed with Dr. Rosales and he will see the patient and make his best assessment.---Ursula Thompson CNM 07/17/2024. Orders: Orders CT NG by PCR Today Ursula Thompson CNM Z11.3 - Encounter for screening for infections with a predominantly sexual mode of transmission Bacterial Vaginosis Panel Today Ursula Thompson CNM Z11.3 - Encounter for screening for infections with a predominantly sexual mode of transmission AMB IUD Insertion/Removal - Practice Supplied Today Giacomo Rosales MD Z30.433 - Encounter for removal and reinsertion of intrauterine contraceptive device Coding Level of Care Code Procedure Only Diagnoses Remove/insert IUD Z30.433 CPT Codes Details - CPT: 72264-AEV Removal ([id number]) Details - CPT: 12410-DMH Removal ([id number]) Details - CPT: 28839-RXP Insertion ([id number])
[2024-07-17 09:58] VITALS: BP 116/72; BMI 37.7
--- OUTSIDE RECORDS SUMMARY | 2024-07-17 10:14 | XMS_ITS | Data Portability ---
Author Organization [place] - [facility], Allergy Address [address] [place] [phone] Care Team Providers Care Vp [employer] [facility] [employer] Name Role Phone REBEL TAVARES Referring Provider [phone] Assessment No assessment recorded. Plan of Treatment Reminders Order Date Submit Date Provider Last Modified By Organization Details Last Modified Time Details Appointments None recorded. Lab None recorded. Referral None recorded. Procedures None recorded. Surgeries None recorded. Imaging polysomnogr am, diagnostic, 6 yrs or older 2024 025 [place] [address] [facility], [address] [place] [address], [address], 15:07:44 Medication Orders fluticasone propionate 50 mcg/actuati on nasal spray,suspe nsion 2024 025 [facility] #[id number], [address] [place], [address], 14:58:38 Patient TargetsNo targets recorded. 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 Fortunately she has not had any episodes since November. We reviewed the indications for surgery would be 7 episodes in a 12-month period of 4 episodes per year for 3 consecutive years. Typically if she had a persistent acute infection that was not responding to amoxicillin, I would consider either a cephalosporin or clindamycin. At the present time no intervention is necessary. Given her snoring and daytime fatigue with poor sleeping I would suggest a polysomnogram. [email or web address] Not available 06/07/2024 14:57:55 Reason for Referral None Reported. Problems Name Problem SNOMED Code Status Onset Date Resolution Date Notes Provider Name and Address Organization Details Recorded Time Chronic tonsillitis 16972287 Active 2024 DIPTI SHAH MD [address] [address], [place], [phone], [facility] 14:56:30 Deviated nasal septum 529681412 Active 2024 DIPTI SHAH MD [address] [address], [place], [address], [facility] 14:56:34 Snoring 62776228 Active 2024 DIPTI SHAH MD [address] [address], [place], [address], [facility] 14:56:40 Problem Notes None recorded. Medical Equipment None Reported. Allergies Allergen ID Allergen Name Allergen Category Reaction Reaction Severity Criticality Documentation Date Start Date Code Code System Note Provider Name and Address Organization Details Recorded Time 157225 Zithromax medicatio n Not available Not available Not available 06/07/2024 01661 4 RxNorm Brittney stafford [facility] 13:47:38 171214 grape extract food,medi cation Not available Not available Not available 06/07/2024 27600 2 RxNorm Brittney stafford [facility] 13:47:49 Medications Name Sig Start Date Stop Date Status Note LastModified by Organization Details LastModified Time penicillin V potassium 500 mg tablet TAKE 1 TABLET BY MOUTH EVERY 8 HOURS FOR 10 DAYS 06/07 completed Not Available Not Available Not Available doxycycline monohydrate 100 mg tablet PLEASE SEE ATTACHED FOR DETAILED DIRECTION S 06/07 completed Not Available Not Available Not Available cephalexin 500 mg capsule TAKE 1 CAPSULE BY MOUTH 3 TIMES A DAY FOR 7 DAYS 06/07 completed Not Available Not Available Not Available sertraline 25 mg tablet TAKE 1 TABLET BY MOUTH EVERY DAY TAKE WITH 50MG active Not Available Not Available No t Available dextroamphe tamine-amph etamine ER 10 mg 24hr capsule,ext end release TAKE 1 CAPSULE BY MOUTH EVERY DAY IN THE MORNING active Not Available Not Available No t Available fluticasone propionate 50 mcg/actuati on nasal spray,suspe nsion INSTILL [address] INTRA[address] L ROUTE EVERY DAY active Not Available Not Available No t Available sertraline 50 mg tablet TAKE 1 TABLET BY MOUTH EVERY DAY active Not Available Not Available No t Available dextroamphe tamine-amph etamine 5 mg tablet TAKE 1 TABLET BY MOUTH EVERY DAY NEEDED active Not Available Not Available No t Available dextroamphe tamine-amph etamine ER 5 mg 24hr capsule,ext end release TAKE 1 CAPSULE BY MOUTH EVERY DAY IN THE MORNING 06/07 completed Not Available Not Available Not Available Vitals Date Recorded Body height Body mass index (BMI) Body weight Provider Name and Address Organization Details Last Updated DateTime 06/07/2024 175.26 cm 36.9 kg/m2 091621.09 g Brittney Martínez [place] - [facility] 06/07/2024 13:45:20 Social History None recorded. Functional Status None recorded. Mental Status None recorded. Family History Nothing Reported. Medical History Condition Response Anxiety Y Asthma Y Sleep Disorder Gynecological HistoryNo gynecological history recorded. Obstetrics History GPAL:G 0 P 0 0 0 0 Past Encounters Encounter ID Performer Location Encounter Start Date Encounter Closed Date Diagnosis/Indication Diagnosis SNOMED-CT Code Diagnosis ICD10 Code Diagnosis Note [id number] DIPTI MCGEE MD [facility] [address] [phone] 06/07/2024 13:31:02 06/07/2024 15:03:36 Chronic tonsillitis 69050259 J35.01 Deviated nasal septum 12 9435269 J34.2 mild valve collapse Snoring 08731806 R06.83 Health Concerns Section Related Observation LastModified by Organization Detai ls LastModified Time None Recorded Concern Status LastModified by Organization Details LastModified Time None Recorded Advance Directives Directive None Recorded Payers Encounter Date Sequence Insurance Name Policy Number Policy [place] Covered Member ID [place] Member ID Guarantor Name 06/07/2024 1 [facility] ([facility] Keila Spangler [id number] Keila Spangler Notes Date Note Type Note Provider Name and Address Organization Details Recorded Time 06/07/2024 text/html Patient seen for an opinion regarding recurrent bouts of tonsillitis. She had 4 bouts of tonsillitis and a couple of months. Last summer. Nothing since November. She has a history of snoring and mild apnea. Used CPAP around 2014 or 2015. Notes snoring and restless sleep. No eating, drinking or swallowing difficulties no throat issues for the last several months. DIPTI RAYA MD [address] [place] [address], [phone], [facility] - [facility] 06/07/2024 15:00:02 OBGyn Episode No OBEpisode recorded.
== END 2024-07-17 12:22 | disposition home or self-care (01) ==
PROVIDERS: PCP Nurse Practitioner Family; Visit Provider Advanced Practice Midwife
DX: Z30.433 Encounter for removal and reinsertion of intrauterine contraceptive device (principal)
CPT/HCPCS: 58300; 58301

== ENCOUNTER 2024-09-13 13:50 | Outpatient (AMB) | payer OTHER, SELFPAY ==
[2024-09-13 13:53] VITALS: BP 118/70; BMI 37.7
--- NOTE | 2024-09-13 13:53 | A.OFFVIS_ITS ---
Vital Signs 09/13/24 13:53 Height 5 ft 9 in Weight 255 lb BMI 37.7 BP 118/70 Blood Pressure Location Lt brachial Position Sitting Intake Visit Reasons: IUD check, sterling pt Director Of Government Sales Required: No Bolt Threader: Bolt Threader Present (Laura ) Accompanied by: Self / Same As Patient Allergies azithromycin (From ZITHROMAX) Allergy (Unknown, Verified 09/13/24 13:56) UNKNOWN concord grape Allergy (Unknown, Uncoded 01/25/24 10:29) hives CONCORD GRAPES Allergy (Unknown, Uncoded 09/13/24 13:56) ITCHY THROAT Medication List - Last Reconciled 09/13/24 by Laura Carrillo LPN albuterol sulfate 90 mcg/actuation (ProAir HFA) 2 puffs inhalation Q4-6H PRN ascorbate calcium (vitamin C) 500 mg PO DAILY biotin-calcium carbonate 800-195 mcg-mg (Biotin-Calcium) tabs PO cholecalciferol (vitamin D3) 25 mcg PO DAILY dextroamphetamine-amphetamine 10 mg ER 1 cap PO QAM ferrous sulfate (Clayton-Time) 325 mg PO DAILY levonorgestrel (Mirena) intrauterine sertraline (Zoloft) 25 mg PO DAILY sertraline (Zoloft) 50 mg PO DAILY Is last menstrual period known: Yes Last menstrual period: 09/03/24 Post menopausal: No HPI Comments Details: Patient is here today for a post IUD insertion check up. She reported her partner may have felt the strings and want to make sure they were okay. She has no other concerns, no bleeding issues, abnormal discharge or odors. [facility] Medical History IUD (intrauterine device) in place Remove/insert IUD ADHD Nerve root compression Asthma Anemia Surgical History No pertinent past surgical history Family History Father CVD (cardiovascular disease) Arrhythmia Myocardial infarction Paternal Grandfather Cancer Maternal Grandmother Stroke Maternal Uncle Substance use disorder Mother Substance use disorder Mental health disorder Maternal Grandmother Mental health disorder Sister Mental health disorder Social History (Reviewed 09/13/24 @ 14:19 by LIDA Laureano Housing: Apartment Alcohol intake: former Year quit: 2021 Patient Tobacco Use Status: Never used Tobacco e-Cigarette/Vaping Use: Never Used Second Hand Smoke Exposure: No service: No Current occupational status: employed Current occupation: [employer] Current occupational exposures/hazards: No Gender identity: Female Cognitive needs: No Hearing needs: No Vision needs: Yes Female Reproductive History Menstrual Age of Menarche: 14 Date of last menstrual period: 09/03/24 Review of Systems Const All systems reviewed & are unremarkable except as noted in HPI and below Physical Exam Vital Signs: Last Vital Signs BP 118/70 09/13/24 13:53 BMI result Body Mass Index 37.7 Const General: cooperative, healthy appearing and no acute distress Orientation/consciousness: patient oriented x3 GI Inspection: Yes normal to inspection Palpation (GI): Soft to palpation and Other GI palpation findings present (Nontender) Rectal Exam - Female: visual inspection normal General: Yes bladder normal to palpation External Female Exam: normal appearance of the urethra Speculum Exam - Vagina: normal appearance of the vagina, normal palpation and normal vaginal discharge Speculum Exam - Cervix: normal appearance of the cervix, normal palpation and Other cervical findings present (IUD strings at the os) Bimanual exam- vagina & uterus: normal bimanual exam, normal palpation, uterine size normal, bladder normal to palpation, normal palpation, uterine shape normal and non-tender Bimanual Exam- Adnexa, other: normal adnexae Neuro General: patient oriented x3 Assessment & Plan Assessment & Plan (1) IUD check up: Code(s): Z30.431 - Encounter for routine checking of intrauterine contraceptive device Plan Instructed on IUD string check and how to replace string position. If strings are problematic for partner to return to the office for trimming. Monitor bleeding report any heavier prolonged episodes. Annual exam scheduled. The patient expressed understanding and agreement with the plan of care. All of her questions and concerns were addressed to the best of my ability. This note is constructed using voice recognition software. While every effort has been made to ensure accuracy, dental amalgam processor errors may have been included. Coding Level of Care Code Est Pt Level 2 (60856) Diagnoses IUD check up Z30.431
--- OUTSIDE RECORDS SUMMARY | 2024-09-13 14:24 | XMS_ITS | Data Portability ---
Author Organization [place] - [facility], Allergy Address [address] [address] Care Team Providers Care Calender Feeder Name Role Phone REBEL TAVARES Referring Provider [phone] Assessment No assessment recorded. Plan of Treatment Reminders Order Date Submit Date Provider Last Modified By Organization Details Last Modified Time Details Appointments None recorded. Lab None recorded. Referral None recorded. Procedures None recorded. Surgeries None recorded. Imaging polysomnogr am, diagnostic, 6 yrs or older 2024 0[address] [place] [id number] [facility], [address] [place] [address], [address], 15:07:44 Medication Orders fluticasone propionate 50 mcg/actuati on nasal spray,suspe nsion 2024 025 [facility]/Pharmacy #[id number], [address] [facility] [place], [address], 14:58:38 Patient TargetsNo targets recorded. 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 ester Not available 06/07/2024 14:57:55 Reason for Referral None Reported. Problems Name Problem SNOMED Code Status Onset Date Resolution Date Notes Provider Name and Address Organization Details Recorded Time Chronic tonsillitis 50074542 Active 2024 DIPTI SHAH MD 100 [facility],ST [address] [facility], [facility] [place], [address], [facility] 14:56:30 Deviated nasal septum 543039622 Active 2024 DIPTI SHAH MD 100 [facility],[address], [place], [address], [facility] 14:56:34 Snoring 37597083 Active 2024 DIPTI SHAH MD 100 [facility], [address], [place], [address], [facility] 14:56:40 Problem Notes None recorded. Medical Equipment None Reported. Allergies Allergen ID Allergen Name Allergen Category Reaction Reaction Severity Criticality Documentation Date Start Date Code Code System Note Provider Name and Address Organization Details Recorded Time 418707 Zithromax medicatio n Not available Not available Not available 06/07/2024 12080 4 RxNorm Brittney stafford [facility] 13:47:38 471263 grape extract food,medi cation Not available Not available Not available 06/07/2024 48459 2 RxNorm Brittney stafford [facility] 13:47:49 Medications Name Sig Start Date Stop [...] Updated DateTime 06/07/2024 175.26 cm 36.9 kg/m2 484065.09 g Brittney Martínez [place] - [facility] 06/07/2024 13:45:20 Social History None recorded. Functional Status None recorded. Mental Status None recorded. Family History Nothing Reported. Medical History Condition Response Anxiety Y Sleep Disorder Asthma Y Gynecological HistoryNo gynecological history recorded. Obstetrics History GPAL:G 0 P 0 0 0 0 Past Encounters Encounter ID Performer Location Encounter Start Date Encounter Closed Date Diagnosis/Indication Diagnosis SNOMED-CT Code Diagnosis ICD10 Code Diagnosis Note [id number] DIPTI MCGEE MD [facility] [address] [address] 06/07/2024 13:31:02 06/07/2024 15:03:36 Chronic tonsillitis 06151214 J35.01 Deviated nasal septum 12 2874513 J34.2 mild valve collapse Snoring 83804708 R06.83 Health Concerns Section Related Observation LastModified by Organization Detai ls LastModified Time None Recorded Concern Status LastModified by Organization Details LastModified Time None Recorded Advance Directives Directive None Recorded Payers Insurance Date Sequence Insurance Name Policy Number Policy [place] Covered Member ID [place] Member ID Guarantor Name 06/07/2024 1 [facility] Keila Spangler [id number] Keila Spangler Notes Date Note Type [...] the last several months. DIPTI RAYA MD [address] [place] [address], [phone] [place] [facility] 06/07/2024 15:00:02 OBGyn Episode No OBEpisode recorded.
== END 2024-09-13 14:26 | disposition home or self-care (01) ==
LOC: HO.HWS 13:51
PROVIDERS: PCP Nurse Practitioner Family; Visit Provider Advanced Practice Midwife
DX: Z30.431 Encounter for routine checking of intrauterine contraceptive device (principal)
CPT/HCPCS: 99212

== ENCOUNTER 2024-12-18 12:26 | Outpatient (AMB) | payer OTHER, SELFPAY ==
[2024-12-18 12:53] VITALS: BP 100/62; PULSE 73; BMI 41.0
--- NOTE | 2024-12-18 12:53 | A.OFFVIS_ITS ---
Vital Signs 12/18/24 12:53 Height 5 ft 9 in Weight 277 lb 12.519 oz BMI 41.0 BP 100/62 Blood Pressure Location Rt brachial Position Sitting Pulse 73 Pulse Source Monitor Intake Visit Reasons: 1 year f/u Electric Arc Welder Required: No Allergies azithromycin (From ZITHROMAX) Allergy (Unknown, Verified 12/18/24 12:56) UNKNOWN concord grape Allergy (Unknown, Uncoded 12/18/24 12:56) hives CONCORD GRAPES Allergy (Unknown, Uncoded 12/18/24 12:56) ITCHY THROAT Medication List - Last Reconciled 12/19/24 by Patience Richardson, MACHINE OPERATOR TRANSPLANTER-C albuterol sulfate 90 mcg/actuation (ProAir HFA) 2 puffs inhalation Q4-6H PRN ascorbate calcium (vitamin C) 500 mg PO DAILY biotin-calcium carbonate 800-195 mcg-mg (Biotin-Calcium) tabs PO cholecalciferol (vitamin D3) 25 mcg PO DAILY dextroamphetamine-amphetamine 10 mg ER 1 cap PO QAM ferrous sulfate (Clayton-Time) 325 mg PO DAILY levonorgestrel (Mirena) intrauterine sertraline (Zoloft) 100 mg PO DAILY HPI HPI 1 year f/u: Details: Keila is a 39-year-old female with past medical history of symptomatic orthostatic hypotension who presents for follow up. Her last prior visit was 12/17/23. Today she reports that she had been doing well over the last year. She will have lightheadedness at times and has been able to manage her symptoms. She follows good fluid intake and an increased salt load in her diet. Wears compressions socks at times. No chest discomfort at rest or with activity. No shortness of breath, PND, orthopnea or edema. No presyncope, syncope, falls. She tolerates normal day-to-day activities but has issues with prolonged standing. [facility] Medical History IUD (intrauterine device) in place Remove/insert IUD ADHD Nerve root compression Asthma Anemia Surgical History No pertinent past surgical history Family History Father CVD (cardiovascular disease) Arrhythmia Myocardial infarction Paternal Grandfather Cancer Maternal Grandmother Stroke Maternal Uncle Substance use disorder Mother Substance use disorder Mental health disorder Maternal Grandmother Mental health disorder Sister Mental health disorder Social History Housing: Apartment Alcohol intake: former Year quit: 2021 Patient Tobacco Use Status: Never used Tobacco e-Cigarette/Vaping Use: Never Used Second Hand Smoke Exposure: No service: No Current occupational status: employed Current occupation: [employer] Current occupational exposures/hazards: No Gender identity: Female Cognitive needs: No Hearing needs: No Vision needs: Yes Female Reproductive History Menstrual Age of Menarche: 14 Review of Systems Const All systems reviewed & are unremarkable except as noted in HPI and below ENT Denies dizziness Card Denies chest pain, Denies chest pain at rest, Denies chest pain with activity, Denies rapid heart rate, Denies pedal edema, Denies edema, Denies leg edema, Denies lightheadedness, Denies palpitations, Denies dyspnea, Denies dyspnea on exertion and Denies orthopnea Resp Denies cough, Denies dyspnea and Denies dyspnea on exertion GI Denies hematochezia and Denies change in stool character Musc Denies abnormal gait, Reports limited range of motion, Reports muscle cramps, Denies muscle weakness, Denies numbness, Denies radiating pain into limb, Denies stiffness and Denies tingling Neuro Denies abnormal gait, Denies dizziness, Denies numbness and Denies tingling Endo Denies palpitations Physical Exam Vital Signs: Last Vital Signs Pulse 73 12/18/24 12:53 BP 100/62 12/18/24 12:53 BMI result Body Mass Index 41.0 Const General: cooperative, healthy appearing, comfortable and no acute distress Orientation/consciousness: patient oriented x3 Neck Neck: Yes normal visual inspection and Yes no JVD Resp Effort & Inspection: normal respiratory effort Auscultation: clear to auscultation bilaterally, no rales, no rhonchi and no wheezes Cardio Rate: regular rate Rhythm: regular rhythm Heart sounds: S1 normal heart sound present, S2 normal heart sound present, no gallops, no murmurs and no rubs Neuro General: patient oriented x3 Extrem General: Yes normal to inspection and No no pedal edema Psych Appearance: grossly normal Mental Status: mental status grossly normal Speech and movement: Normal speech and movement present Office Procedures EKG Details: Today, read by me normal Sinus Rhythm, rate 73, Qtc 423ms 65063-Mlhrelswlyniowluz, Complete Assessment & Plan Assessment & Plan (1) Orthostatic hypotension: Code(s): I95.1 - Orthostatic hypotension Category: Medical Plan: Hx of orthostatic hypotension vs dysautonomia with symptoms of lightheadedness with position changes and prolonged standing. Cardiac evaluation included: Echocardiogram done 02/27/2020 showed EF 55-60%, no valve abnormalities. Holter monitor done 12/19/2019 showed sinus rhythm with rate range 52 to 155, average 77 with rare SVE. A tilt-table test was done on 01/30/2020 with symptoms of presyncope, blood pressure low 78/49, conclusion of dehydration. EKG today showing NSR, rate 73. Symptoms mostly controlled with increased fluid and salt intake, compression stocking use. Has been stable and doing well last few years. Reviewed need for ongoing conservative management. If she has increasing or uncontrolled symptoms, instructed to call. Cardiology follow up PRN. (2) Dizziness: Code(s): R42 - Dizziness and giddiness Category: Medical Plan: as above Plan Time spent on chart review, documentation, interview and assessment Coding Level of Care Code Est Pt Level 3 (78367) Complex EM visit Add On G2211 Diagnoses Orthostatic hypotension I95.1 Dizziness R42 CPT Codes EKG - CPT: 71093-Wdffhoeogmarzgspl, Complete ([id number]) Time Spent (min) 22
--- OUTSIDE RECORDS SUMMARY | 2024-12-18 14:47 | XMS_ITS | Patient Health Record ---
Author Organization [facility] jimenez [place] Address [address] [place] [address] Care Team Providers Care Business Office Director Name Role Phone Rory Harden Primary Care Provider Unaausten Kathrine Villanueva Unavailable [phone] Allergies Allergen (clinical drug ingredient) Drug/Non Drug Allergy documented on EMR Reaction Allergy Type Onset Date Status concord grapes (uncoded) rash/swelling Allergy Active azithromycin z-pac (uncoded) Unknown Allergy A ctive Biaxin Unknown Drug Allergy Active erythromycin Erythromycin Unknown Drug Allergy A ctive Reason For Referral No Information Medications Medication SIG (Take, Route, Frequency, Duration) Notes Start Date End Date Status Imiquimod 5 % (Prior Auth#:[id number]) External every other day Active iron Active ProAir HFA Active Vitamin D Active IUD's Active Immunizations Vaccine Route Administration Date Status Comme nts Influenza Unknown 01/03/2019 Administered Social History Tobacco Use: Social History Observation Description Date Details (start date - stop date) Never Smoker NA - NA Tobacco Use/Smoking Question Answer Notes Are you a: nonsmoker Additional Findings: Tobacco Non-User Current no n-smoker Alcohol Screen Question Answer Notes Did you have a drink containing alcohol in the p ast year? Yes Points 0 Interpretation Negative Tobacco use other than smoking: Question Answer Notes Are you an other tobacco user? 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
== END 2024-12-18 13:19 | disposition home or self-care (01) ==
LOC: HO.HCS 12:26
PROVIDERS: PCP Nurse Practitioner Family; Visit Provider Nurse Practitioner Family
DX: I95.1 Orthostatic hypotension (principal); R42 Dizziness and giddiness
CPT/HCPCS: 93010; 99213

== ENCOUNTER → 2024-12-18 12:26 | Outpatient (BNVA) | payer OTHER, SELFPAY | PROVIDERS: PCP Nurse Practitioner Family; Visit Provider Nurse Practitioner Family | DX: I95.1 Orthostatic hypotension (principal); R42 Dizziness and giddiness | CPT/HCPCS: 93005 ==

== ENCOUNTER 2025-03-09 08:13 | Outpatient (AMB) | payer OTHER, SELFPAY ==
--- NOTE | 2025-03-09 08:13 | MHC.OFFVIS ---
Vital Signs 03/09/25 08:15 Height 5 ft 9 in Weight 276 lb BMI 40.8 BP 114/74 Blood Pressure Location Rt brachial Position Sitting Intake Visit Reasons: Annual Intake Note: patient here for medical device annual and would like strings cut due to partner feeling it and causing pain. Restaurant Host Required: No Metal Die Finisher: Metal Die Finisher Present (Caitie Atkinson LPN) Accompanied by: Self / Same As Patient Allergies azithromycin (From ZITHROMAX) Allergy (Unknown, Verified 03/09/25 08:17) UNKNOWN concord grape Allergy (Unknown, Uncoded 03/09/25 08:17) hives CONCORD GRAPES Allergy (Unknown, Uncoded 03/09/25 08:17) ITCHY THROAT Medication List - Last Reconciled 03/09/25 by Aster Saini CNM albuterol sulfate 90 mcg/actuation (ProAir HFA) 2 puffs inhalation Q4-6H PRN ascorbate calcium (vitamin C) 500 mg PO DAILY biotin-calcium carbonate 800-195 mcg-mg (Biotin-Calcium) tabs PO cholecalciferol (vitamin D3) 25 mcg PO DAILY dextroamphetamine-amphetamine 10 mg ER 1 cap PO QAM ferrous sulfate (Clayton-Time) 325 mg PO DAILY levonorgestrel (Mirena) intrauterine prazosin 1 mg PO BEDTIME sertraline (Zoloft) 100 mg PO DAILY Is last menstrual period known: Yes Last menstrual period: 02/10/25 Do you need a note to return to daycare/school/sports/work: No HPI Comments Details: Pt is informed of JAVIER AI ambient listening for clinical documentation and agrees to its use during the visitPt presents today for ANNUAL exam The patient is a 39 year old female presenting for a routine gynecological examination and IUD management. She reports that her IUD strings are bothering her . The patient reports no new medical problems or surgeries. She has been taking a new medication( Prazosin) at bedtime for nightmares for approximately one month and has found it to be effective. Her family history is negative for breast and ovarian cancers. In terms of social history, she lives with her and has no children, with no plans for future children. 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 She denies smoking or substance use and drinks alcohol occasionally. Her diet has improved with the use of meal order kits. She exercises a few times a week, and her dietary calcium intake is inconsistent. Contraception: IUD re-placed 07/2024 Last Pap: 2022 , Results: Neg Last mammo: n/a, PFSH Medical History IUD (intrauterine device) in place Remove/insert IUD ADHD Nerve root compression Asthma Anemia Surgical History No pertinent past surgical history Family History (Updated 03/09/25 @ 08:42 by Aster Saini CNM) Father CVD (cardiovascular disease) Arrhythmia Myocardial infarction Paternal Grandfather Cancer Maternal Grandmother Stroke Maternal Uncle Substance use disorder Mother Substance use disorder Mental health disorder Maternal Grandmother Mental health disorder Sister Mental health disorder Social History (Updated 03/09/25 @ 08:32 by Aster Saini CNM) Household Members: Spouse Housing: Apartment Alcohol intake: former Year quit: 2021 Patient Tobacco Use Status: Never used Tobacco e-Cigarette/Vaping Use: Never Used Second Hand Smoke Exposure: No service: No Current occupational status: employed Current occupation: [employer] Current occupational exposures/hazards: No Gender identity: Female Cognitive needs: No Hearing needs: No Vision needs: Yes Female Reproductive History Menstrual Age of Menarche: 14 Date of last menstrual period: 02/10/25 control method: progestin IUCD Total pregnancies: 0 Number of Living Children: 0 Date of last pap smear: 12/16/22 History of abnormal pap smear: No Review of Systems Const Reports no additional complaints Eyes Reports no additional complaints ENT Reports no additional complaints Card Reports no additional complaints Resp Reports no additional complaints GI Reports no additional complaints Reports as per HPI Skin/Breast Reports system reviewed and no additional complaints, except as documented Physical Exam Vital Signs: BMI result Body Mass Index 40.8 Const General: cooperative, healthy appearing and no acute distress Orientation/consciousness: patient oriented x3 HEENT Other: Glasses FT Head: Yes normal to inspection and Yes normocephalic Neck Neck: Yes normal visual inspection Chest Breast/axilla inspection: normal inspection of the breasts, normal inspection of the axillae and Other (No skin changes, peau d orange, or nipple discharge noted) Breast/axilla palpation: normal palpation of the breasts, normal palpation of the axillae and no axillary lymphadenopathy Resp Effort & Inspection: normal respiratory effort and able to speak in complete sentences GI Other: belly piercing Inspection: No distended Palpation (GI): Soft to palpation, nontender and no masses Percussion: Yes normal to percussion Rectal Exam - Female: No External hemorrhoid(s) present External Female Exam: normal external appearance and normal appearance of the urethra Speculum Exam - Vagina: normal appearance of the vagina and normal vaginal discharge Speculum Exam - Cervix: normal appearance of the cervix (IUD strings seen and trimmed) and normal palpation (neg CMT) Bimanual exam- vagina & uterus: normal bimanual exam, normal palpation (neg CMT), uterine mobility normal and non-tender Bimanual Exam- Adnexa, other: no masses and No adnexal tenderness Skin General skin exam: no rashes or lesions noted Neuro General: patient oriented x3 and moves all extremities Extrem General: Yes full ROM Psych Speech and movement: Normal speech and movement present Affect: normal affect Attitude: cooperative Thought process: Normal thought process present Assessment & Plan Assessment & Plan (1) Well woman exam with routine gynecological exam: Code(s): Z01.419 - Encounter for gynecological examination (general) (routine) without abnormal findings Category: Medical Plan: During the visit, the following areas of concern were addressed: Regular exercise Healthy lifestyle Health Maintenance and Screening -Reviewed ASCCP guidelines for Paps and yearly (bi-yearly ) pelvic exam. -Reviewed and encouraged diet and exercise for cardiovascular and bone health -Reviewed breast self-awareness. Importance of yearly mammogram after age 40 (earlier if first-degree relative with breast cancer at a younger age ) Discuss use of 3 times per week weight-bearing exercise, vitamin D3 and servings of dietary calcium daily for bone health. -continue to follow with PCP for general medical care, immunizations. Family and personal history of cancer reviewed. Genetic screening - not indicated The patient has BMI: 40 Approaches towards weight loss are discussed including burning more calories than one takes in by frequent, small meals, portion control, avoiding eating before bedtime, regular exercise with an emphasis on duration rather than intensity. RTO one year or sooner prsanty Saini CNM Note about provider documentation : If you or the patient named in this chart and are reviewing your medical notes, please note that medical documentation is often written with abbreviations and medical terminology, and directed for other providers who may be involved in your care as well. Documentation is critical to record what has happened, what tests were ordered, and so they are interpreted with the resulting diagnoses. These notes have been made available for patient review but not specifically written for the patient. Important health information is always given to my patients in clinical instructions. Please review your after visit summary and our contact our clinical staff if you have any questions. (2) Screening breast examination: Code(s): Z12.39 - Encounter for other screening for malignant neoplasm of breast (3) IUD (intrauterine device) in place: Code(s): Z97.5 - Presence of (intrauterine) contraceptive device Plan 1. Encounter for gynecological examination/ Health Maintenance as noted above, including: The patient's last Pap smear was recent and normal, so she is not due for another one at this time. We discussed health maintenance, including that she is due for a mammogram next year. I provided counseling on performing breast self-exams and signs to report, such as skin dimpling or nipple discharge. Due to inconsistent dietary calcium, I recommended she aim for 1500 mg daily, supplementing with calcium and vitamin D if needed. The patient will follow up in one year. 2. Encounter for management of intrauterine contraceptive device The patient's primary concern was that the IUD strings were bothering her . On examination, the strings were confirmed to be long and were subsequently trimmed. We discussed that trimming them too short could make them poke more and also complicate future removal. She will monitor the situation, and we can attempt to trim them again if problems persist. 3. Postcoital vaginal symptoms The patient reports transient symptoms after sex that resolve on their own, likely due to a pH imbalance. I reassured her that this is not concerning as long as it is self-limited, but she should return if symptoms persist. 4. Nightmares The patient reports that nightmares have resolved with a medication she started about a month ago. She reports it is effective and continues to take it. Coding Level of Care Code Est Pt Prev Care 18-39y(09267) Diagnoses Well woman exam with routine gynecological exam Z01.419 Screening breast examination Z12.39 IUD (intrauterine device) in place Z97.5
[2025-03-09 08:15] VITALS: BP 114/74; BMI 40.8
--- OUTSIDE RECORDS SUMMARY | 2025-03-09 08:15 | XMS_ITS | Data Portability ---
Author Organization [place] - [facility], Allergy Address [address] [address] Care Team Providers Care Technical Services Rep Name Role Phone REBEL TAVARES Referring Provider [phone] Assessment No assessment recorded. Plan of Treatment Reminders Order Date Submit Date Provider Last Modified By Organization Details Last Modified Time Details Appointments None recorded. Lab None recorded. Referral None recorded. Procedures None recorded. Surgeries None recorded. Imaging polysomnogr am, diagnostic, 6 yrs or older 2024 [address] [place] [address] [facility], [address] [place] [address], [address], 15:07:44 Medication Orders fluticasone propionate 50 mcg/actuati on nasal spray,suspe nsion 2024 025 [facility]/Pharmacy #[id number], [address] [facility] [place] [place], [address], 14:58:38 Patient TargetsNo targets recorded. 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 [...] Address Organization Details Recorded Time Chronic tonsillitis 54994718 Active 2024 DIPTI SHAH MD [address] [facility],[address] [facility], [place], [address], [facility] 14:56:30 Deviated nasal septum 619049355 Active 2024 DIPTI SHAH MD 100 [facility],[address] [place], [address], [facility] 14:56:34 Snoring 23964177 Active 2024 DIPTI SHAH MD 100 [facility], [address] [place], [address], [facility] 14:56:40 Problem Notes None recorded. Medical Equipment None Reported. Allergies Allergen ID Allergen Name Allergen Category Reaction Reaction Severity Criticality Documentation Date Start Date Code Code System Note Provider Name and Address Organization Details Recorded Time 126982 Zithromax medicatio n Not available Not available Not available 06/07/2024 17277 4 RxNorm Brittney stafford [facility] 13:47:38 415376 grape extract food,medi cation Not available Not available Not available 06/07/2024 02853 2 RxNorm Brittney stafford [facility] 13:47:49 Medications Name Sig Start Date Stop [...] Updated DateTime 06/07/2024 175.26 cm 36.9 kg/m2 301269.09 g Brittney Martínez [place] - [facility] 06/07/2024 13:45:20 Social History None recorded. Functional Status None recorded. Mental Status None recorded. Family History Nothing Reported. Medical History Condition Response Anxiety Y Asthma Y Sleep Disorder Gynecological HistoryNo gynecological history recorded. Obstetrics History GPAL:G 0 P 0 0 0 0 Past Encounters Encounter ID Performer Location Encounter Start Date Encounter Closed Date Diagnosis/Indication Diagnosis SNOMED-CT Code Diagnosis ICD10 Code Diagnosis IMO Codes Diagnosis Note [id number] DIPTI MCGEE MD [facility] [address] [address] 06/07/2024 13:31:02 06/07/2024 15:03:36 Chronic tonsillitis 27577675 J35.01 Deviated nasal septum 12 1149358 J34.2 mild valve collapse Snoring 45683343 R06.83 Health Concerns Section Related Observation LastModified by Organization Germain nava LastModified Time None Recorded Concern Status LastModified by Organization Details LastModified Time None Recorded Advance Directives Directive None Recorded Payers Insurance Date Sequence Insurance Name Policy Number Policy [place] Covered Member ID [place] Member ID Guarantor Name 06/07/2024 1 [facility] ([facility] Keila Spangler [id number] Keila Spangler Notes Date Note Type [...] the last several months. DIPTI RAYA MD [address] [place] [address], [phone], [facility] - [facility] 06/07/2024 15:00:02 OBGyn Episode No OBEpisode recorded.
--- OUTSIDE RECORDS SUMMARY | 2025-03-09 08:15 | XMS_ITS | Patient Health Record ---
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 Name Role Phone Rory Harden Primary Care Provider Unaausten Kathrine Villanueva Unavailable [phone] Allergies Allergen (clinical drug ingredient) Drug/Non Drug [...] End Date Status Imiquimod 5 % (Prior Auth#:[id number]) External every other day Active iron Active [...] Date Coverage End Date [employer] [address] [address] [place] [address] [id number] Keila Spangler Self - patient is the insured Medical (General) History Medical History History ICD Code Anemia Anxiety asthma Back,Hip,and Knee pain Depression Heart murmur Psychiatric disorder Chicken pox Blood in Urine Sleep apnea Surgical History Surgery Date(Month/Year)
== END 2025-03-09 10:03 | disposition home or self-care (01) ==
PROVIDERS: PCP Physician Assistant Medical; Visit Provider Advanced Practice Midwife
DX: Z01.419 Encounter for gynecological examination (general) (routine) without abnormal findings (principal); Z12.39 Encounter for other screening for malignant neoplasm of breast; Z97.5 Presence of (intrauterine) contraceptive device
CPT/HCPCS: 99395; 99459